=== PATIENT | female | born 1975 | race Caucasian/White ===

== ENCOUNTER → 2022-02-17 | Outpatient (CLI) | payer BC ==
[2022-02-17 13:39] LABS: Basophils # (A) 0.03 X 10*3/uL (0.00-0.10); Basophils % (A) 0.6 %; Eosinophils % (A) 2.1 %; HGB 11.6 g/dL (12.0-15.0); Immature Grans, Automated 0 %; Lymphocytes % (A) 21.2 %; MCH 25.7 pg (27.0-32.0); MCV 88.5 fL (80.0-97.0); Mean Platelet Volume 11.8 fL (9.5-12.2); Monocytes # (A) 0.29 X 10*3/uL (0.20-1.00); Monocytes % (A) 6.2 %; NRBC Per 100 WBC 0 /100 WBCS (0.0-0.0); Neutrophils # (A) 3.29 X 10*3/uL (1.80-7.70); Neutrophils % (A) 69.9 %; Platelet Count 228 X 10*3/uL (140-440); RBC 4.52 X 10*6/uL (4.10-5.20); RDW 14.6 % (11.5-14.5); WBC 4.71 X 10*3/uL (4.50-10.00)
[2022-02-17 14:34] LABS: Thyroid Peroxidase Antibodies <9.0 U/mL (0.0-33.0)
[2022-02-17 14:39] LABS: Chol/HDL Ratio 2.33 Ratio
[2022-02-17 14:42] LABS: Erythrocyte Sedimentation Rate 1 mm/Hr (0-20)
[2022-02-17 14:45] LABS: % Iron Saturation 11.76 (12.00-45.00); ALT 21 U/L (8-44); AST 25 U/L (13-35); African American GFR (CKD) 118.7 (60.0-200.0); Albumin 4.2 g/dL (3.8-4.9); Albumin/Globulin Ratio 1.83 (1.60-3.17); Alkaline Phosphatase 54 U/L (41-126); BUN/Creat Ratio 17.14 Ratio (12.00-20.00); C Reactive Protein <0.30 mg/dL (0.00-0.80); Carbon Dioxide 25.9 mmol/L (20.0-27.5); Chloride 104 mmol/L (96-109); Ferritin 9.4 ng/mL (10.0-291.0); Globulin 2.3 g/dL (1.6-3.3); Glucose 88 mg/dL (70-110); Iron 53 ug/dL (50-170); Non-African American GFR(CKD) 102.5 (60.0-200.0); Potassium 3.7 mmol/L (3.5-5.5); Sodium 140 mmol/L (135-145); Total Iron Binding Capacity 451 ug/dL (228-460); Total Protein 6.5 g/dL (6.2-8.2)
[2022-02-17 16:00] LABS: Follicle Stimulating Hormone 11.6 mIU/mL; Luteinizing Hormone 12.1 mIU/mL
[2022-02-17 16:06] LABS: Cyclic Citrull Pep IgG Unit <0.5 U/mL; Cyclic Citrullinated Pep IgG NEGATIVE (NEGATIVE)
== END | disposition home or self-care (01) ==
LOC: LABWHC1 07:32
PROVIDERS: ATTEND Family Medicine
DX: Z13.220 Encounter for screening for lipoid disorders (principal); R53.83 Other fatigue; E72.12 Methylenetetrahydrofolate reductase deficiency; E04.9 Nontoxic goiter, unspecified; N95.9 Unspecified menopausal and perimenopausal disorder
CPT/HCPCS: 36415; 80053; 80061; 82306; 82525; 82607; 82627; 82670; 82728; 82746; 83001; 83002; 83036; 83090; 83540; 83550; 83735; 84144; 84207; 84270; 84402; 84403; 84439; 84443; 84481; 84630; 85025; 85652; 86038; 86140; 86200; 86376; 86618; 86800

== ENCOUNTER → 2022-02-25 | Outpatient (CLI) | payer BC ==
--- NOTE | 2022-02-26 09:20 | MM ---
Reason for Exam: Screening (asymptomatic). Last mammogram was performed 1 year(s) and 3 month(s) ago. Patient History: Menarche at age 10. First Full-Term at age 17. Hysterectomy at age 34. Risk Values: Mame 5 year model risk: 0.7%. NCI Lifetime model risk: 6.7%. Prior Study Comparison: 10/24/2019 Bilateral MG 3D screening mammo w/cad, Unknown. 11/22/2020 Bilateral MG 3D screening mammo w/cad, Unknown. Tissue Density: The breast tissue is extremely dense which could obscure a lesion on mammography. Findings: Analyzed By CAD. There is no suspicious group of microcalcifications or new suspicious mass in either breast. Overall Assessment: Negative, BI-RAD 1 Management: Screening Mammogram of both breasts in 1 year. Some advise annual bilateral breast ultrasound surveillance in patients with background extremely dense tissue. Electronically signed and approved by: Javier Nunez M.D.
== END | disposition home or self-care (01) ==
LOC: RADMAMWWP 08:35
PROVIDERS: ATTEND Family Medicine
DX: Z12.31 Encounter for screening mammogram for malignant neoplasm of breast (principal)
CPT/HCPCS: 77063; 77067

== ENCOUNTER → 2022-03-08 | Outpatient (CLI) | payer BC ==
--- NOTE | 2022-03-08 08:30 | MR ---
PRE AND POSTCONTRAST ENHANCED MRI OF THE BRAIN: CLINICAL HISTORY: R27.9 UNSPECIFIED LACK OF COORDINATION CONTRAST: Gadavist 7ml Multiplanar and multispin-echo imaging of the brain was performed both before and after the administr ation of contrast. The ventricles, basal cisterns and sulci overlying the cerebral convexities are within normal limits. There is no evidence for midline shift or mass effect. Acute intracranial hemorrhage or extra-axial collection is not evident. There are no abnormal areas of increased or decreased signal intensity within the brain parenchyma. Following contrast administration, there is no evidence for pathologic enhancement or enhancing mass. The paranasal sinuses and mastoid air cells are well-aerated. IMPRESSION: Unremarkable pre and postcontrast enhanced MRI of the brain.
== END | disposition home or self-care (01) ==
LOC: RADMRIMAIN 07:44
PROVIDERS: ATTEND Family Medicine
DX: R27.9 Unspecified lack of coordination (principal)
CPT/HCPCS: 70553; A9585

== ENCOUNTER → 2022-06-10 | Outpatient (CLI) | payer BC ==
[2022-06-10 14:23] LABS: Basophils # (A) 0.03 X 10*3/uL (0.00-0.10); Basophils % (A) 0.7 %; Eosinophils % (A) 2.3 %; HCT 40.9 % (37.2-46.3); HGB 12.8 g/dL (12.0-15.0); Immature Grans, Automated 0 %; Lymphocytes # (A) 1.14 X 10*3/uL (0.90-5.00); Lymphocytes % (A) 26.4 %; MCH 28.3 pg (27.0-32.0); MCHC 31.3 g/dL (32.0-37.0); MCV 90.5 fL (80.0-97.0); Mean Platelet Volume 11.8 fL (9.5-12.2); Monocytes # (A) 0.28 X 10*3/uL (0.20-1.00); Monocytes % (A) 6.5 %; NRBC Per 100 WBC 0 /100 WBCS (0.0-0.0); Neutrophils # (A) 2.77 X 10*3/uL (1.80-7.70); Neutrophils % (A) 64.1 %; Platelet Count 219 X 10*3/uL (140-440); RBC 4.52 X 10*6/uL (4.10-5.20); RDW 14.6 % (11.5-14.5); WBC 4.32 X 10*3/uL (4.50-10.00)
[2022-06-10 16:06] LABS: % Iron Saturation 28.53 (12.00-45.00)
== END | disposition home or self-care (01) ==
LOC: LABWHC1 08:24
PROVIDERS: ATTEND Physician Assistant Medical
DX: R79.0 Abnormal level of blood mineral (principal)
CPT/HCPCS: 36415; 83540; 83550; 85025

== ENCOUNTER 2022-11-27 13:33 | Observation (INO) | payer BC ==
[2022-11-27] MEDS ORDERED: SODIUM CHLORIDE 0.9% 500 ML 500 ML IV STA (14:06)
--- NOTE | 2022-11-27 14:06 | ED ---
Abdominal Pain HPI - General Chief Complaint: Abdominal Pain Stated Complaint: Rectal Bleeding Source: patient Mode of arrival: ambulatory Limitations: no limitations - History of Present Illness Initial Comments: Or D6-year-old female presents to the emergency department reporting rectal bleeding. States that for the past 2 days she has had profuse bright red blood per rectum. States that it is significant and "streaming" right out of her. She denies history of similar but does admit to a history of anal fissure and external hemorrhoids. She has never had a colonoscopy. She denies any rectal pain. No abdominal pain. She is not on any blood thinners. She denies di arrhea, constipation, black stools. No Pepto or urine use. She admits nausea without vomiting. No fevers. No hematuria, dysuria or difficulty voiding. No other alleviating, Perceptin or modifying factors - Related Data Home Medications Medication Instructions Recorded Confirmed Dextroamphetamine/Amphetamine 15 mg PO DAILY 11/27/22 11/27/22 [Adderall Xr 15 mg Capsule] Dextroamphetamine/Amphetamine 10 mg PO DAILY@1200 11/27/22 11/27/22 [Adderall] QUEtiapine [SEROquel] 100 mg PO HS 11/27/22 11/27/22 Vilazodone HCl [Viibryd] 20 mg PO DAILY 11/27/22 11/27/22 Vsl #3 1 cap PO DAILY 11/27/22 11/27/22 Allergies Allergy/AdvReac Type Severity Reaction Status Date / Time morphine Allergy Facial Verified 11/27/22 14:24 Swelling silver Allergy Unknown Verified 11/27/22 14:24 sulfamethoxazole Allergy Rash/Hives Verified 11/27/22 14:24 [From Bactrim] trimethoprim [From Bactrim] Allergy Rash/Hives Verified 11/27/22 14:24 Review of Systems ROS Statement: Those systems with pertinent positive or pertinent negative responses have been documented in the HPI. ROS Other: All systems not noted in ROS Statement are negative. Past Medical History Past Medical History: No Reported History History of Any Multi-Drug Resistant Organisms: None Reported Past Surgical History: Hysterectomy Additional Past Surgical History / Comment(s): gastric, Past Psychological History: Anxiety, Depression Smoking Status: Never smoker Past Alcohol Use History: None Reported Past Drug Use History: None Reported General Exam Limitations: no limitations Course Vital Signs 11/27/22 13:39 Temperature 97.2 F L Pulse Rate 74 Respiratory 16 Rate Blood Pressure 160/102 O2 Sat by Pulse 100 Oximetry Medical Decision Making - Medical Decision Making Was pt. sent in by a medical professional or institution (HARVEY Rapp, [employer], urgent care, hospital, or penitentiary...) When possible be specific @ -[No] Did you speak to anyone other than the patient for history (EMS, parent, family, police, friend...)? What history was obtained from this source @ -[No] Did you review nursing and triage notes (agree or disagree)? Why? @ -[I reviewed and agree with nursing and triage notes] Were old charts reviewed (outside hosp., previous admission, EMS record, old EKG, old radiological studies, urgent care reports/EKG's, penitentiary records)? Report findings @ -[No old charts were reviewed] Differential Diagnosis (chest pain, altered mental status, abdominal pain women, abdominal pain men, vaginal bleeding, weakness, fever, dyspnea, syncope, headache, dizziness, GI bleed, back pain, seizure, CVA, palpatations, mental health, musculoskeletal)? @ -[not applicable] EKG interpreted by me (3pts min.). @ -[As above] X-rays interpreted by me (1pt min.). @ -[None done] CT interpreted by me (1pt min.). @ -[None done] U/S interpreted by me (1pt. min.). @ -[None done] What testing was considered but not performed or refused? (CT, X-rays, U/S, labs)? Why? @ -[None] What meds were considered but not given or refused? Why? @ -[None] Did you discuss the management of the patient with other professionals (professionals i.e. HARVEY Rapp, [employer], lab, RT, psych nurse, psychosocial rehabilitation counselor, automated manufacturing instructor, teacher, chief resource officer, behavioral health case manager)? Give summary @ -[No] Was smoking cessation discussed for >3mins.? @ -[No] Was critical care preformed (if so, how long)? @ -[No] Were there social determinants of health that impacted care today? How? (Homele ssness, low income, unemployed, alcoholism, drug addiction, transportation, low edu. Level, literacy, decrease access to med. care, detention, rehab)? @ -[No] Was there de-escalation of care discussed even if they declined (Discuss DNR or withdrawal of care, Hospice)? DNR status @ -[No] What co-morbidities impacted this encounter? (DM, HTN, Smoking, COPD, CAD, Cancer, CVA, ARF, Chemo, Hep., AIDS, mental health diagnosis, sleep apnea, morbid obesity)? @ -[None] Was patient admitted / discharged? Hospital course, mention meds given and route, prescriptions, significant lab abnormalities, going to OR and other pertinent info. @ -On arrival patient is placed into room 22. A thorough history and physical exam was performed. Rectal exam is performed and I do obtain a occult. I do not appreciate any bright red blood. There is some dried blood. Laboratory studies are conducted. Hemoglobin 13.5. Occult is positive. CT is performed which demonstrates posterior wall of the rectum and some prominent vasculature. Could reflect the site of possible hemorrhage. They recommend direct visualization. Discussed overnight observation with GI consultation with the patient's in the patient was agreeable. Dr. Cortez has been paged and we are still awaiting her call back. Patient will be made nothing by mouth at midnight for possible colonoscopy Undiagnosed new problem with uncertain prognosis? @ -[No] Drug Therapy requiring intensive monitoring for toxicity (Heparin, Nitro, Insulin, Cardizem)? @ -[No] Were any procedures done? @ -[No] Diagnosis/symptom? @ -[default] Acute, or Chronic, or Acute on Chronic? @ -[default] Uncomplicated (without systemic symptoms) or Complicated (systemic symptoms)? @ -[default] Side effects of treatment? @ -[No] Exacerbation, Progression, or Severe Exacerbation? @ -[No] Poses a threat to life or bodily function? How? (Chest pain, USA, AR, pneumonia, PE, COPD, DKA, ARF, appy, cholecystitis, CVA, Diverticulitis, Homicidal, Suicidal, threat to staff... and all critical care pts) @ -[No] - Lab Data Result diagrams: 11/27/22 14:12 11/27/22 14:11 Lab Results 11/27/22 11/27/22 11/27/22 Range/Units 14:11 14:11 14:11 WBC (3.8-10.6) k/uL RBC (3.80-5.40) m/uL Hgb (11.4-16.0) gm/dL Hct (34.0-46.0) % MCV (80.0-100.0) fL MCH (25.0-35.0) pg MCHC (31.0-37.0) g/dL RDW (11.5-15.5) % Plt Count (150-450) k/uL MPV Neutrophils % % Lymphocytes % % Monocytes % % Eosinophils % % Basophils % % Neutrophils # (1.3-7.7) k/uL Lymphocytes # (1.0-4.8) k/uL Monocytes # (0-1.0) k/uL Eosinophils # (0-0.7) k/uL Basophils # (0-0.2) k/uL PT 10.2 (9.0-12.0) sec INR 1.0 (<1.2) APTT 25.4 (22.0-30.0) sec Sodium 138 (137-145) mmol/L Potassium 4.2 (3.5-5.1) mmol/L Chloride 105 (98-107) mmol/L Carbon Dioxide 27 (22-30) mmol/L Anion Gap 6 mmol/L BUN 15 (7-17) mg/dL Creatinine 0.73 (0.52-1.04) mg/dL Est GFR (CKD-EPI)AfAm >90 (>60 ml/min/1.73 sqM) Est GFR (CKD-EPI)NonAf >90 (>60 ml/min/1.73 sqM) Glucose 96 (74-99) mg/dL Plasma Lactic Acid Francisco (0.7-2.0) mmol/L Calcium 9.1 (8.4-10.2) mg/dL Total Bilirubin 0.6 (0.2-1.3) mg/dL AST 24 (14-36) U/L ALT 18 (4-34) U/L Alkaline Phosphatase 67 (38-126) U/L Troponin I <0.012 (0.000-0.034) ng/mL Total Protein 7.0 (6.3-8.2) g/dL Albumin 4.3 (3.5-5.0) g/dL Stool Occult Blood (Negative) 11/27/22 11/27/22 11/27/22 Range/Units 14:11 14:12 14:25 WBC 6.4 (3.8-10.6) k/uL RBC 4.62 (3.80-5.40) m/uL Hgb 13.5 (11.4-16.0) gm/dL Hct 40.1 (34.0-46.0) % MCV 86.8 (80.0-100.0) fL MCH 29.3 (25.0-35.0) pg MCHC 33.8 (31.0-37.0) g/dL RDW 13.9 (11.5-15.5) % Plt Count 197 (150-450) k/uL MPV 9.4 Neutrophils % 77 % Lymphocytes % 16 % Monocytes % 4 % Eosinophils % 1 % Basophils % 0 % Neutrophils # 4.9 (1.3-7.7) k/uL Lymphocytes # 1.0 (1.0-4.8) k/uL Monocytes # 0.2 (0-1.0) k/uL Eosinophils # 0.1 (0-0.7) k/uL Basophils # 0.0 (0-0.2) k/uL PT (9.0-12.0) sec INR (<1.2) APTT (22.0-30.0) sec Sodium (137-145) mmol/L Potassium (3.5-5.1) mmol/L Chloride (98-107) mmol/L Carbon Dioxide (22-30) mmol/L Anion Gap mmol/L BUN (7-17) mg/dL Creatinine (0.52-1.04) mg/dL Est GFR (CKD-EPI)AfAm (>60 ml/min/1.73 sqM) Est GFR (CKD-EPI)NonAf (>60 ml/min/1.73 sqM) Glucose (74-99) mg/dL Plasma Lactic Acid Francisco 0.7 (0.7-2.0) mmol/L Calcium (8.4-10.2) mg/dL Total Bilirubin (0.2-1.3) mg/dL AST (14-36) U/L ALT (4-34) U/L Alkaline Phosphatase (38-126) U/L Troponin I (0.000-0.034) ng/mL Total Protein (6.3-8.2) g/dL Albumin (3.5-5.0) g/dL Stool Occult Blood Positive H (Negative) Disposition Clinical Impression: Rectal bleeding Disposition: ADMITTED IP TO THIS [facility] Condition: Stable Is patient prescribed a controlled substance at d/c from ED?: No Time of Disposition: 17:21 Decision to Admit Reason: Admit from EC Decision Date: 11/27/22 Decision Time: 17:21
[2022-11-27 14:36] LABS: Basophils % (A) 0 %; Eosinophils # (A) 0.1 k/uL (0-0.7); Eosinophils % (A) 1 %; HCT 40.1 % (34.0-46.0); HGB 13.5 gm/dL (11.4-16.0); Lymphocytes % (A) 16 %; MCH 29.3 pg (25.0-35.0); MCHC 33.8 g/dL (31.0-37.0); MCV 86.8 fL (80.0-100.0); Mean Platelet Volume 9.4; Monocytes # (A) 0.2 k/uL (0-1.0); Monocytes % (A) 4 %; Neutrophils # (A) 4.9 k/uL (1.3-7.7); Neutrophils % (A) 77 %; Platelet Count 197 k/uL (150-450); RBC 4.62 m/uL (3.80-5.40); RDW 13.9 % (11.5-15.5); WBC 6.4 k/uL (3.8-10.6)
[2022-11-27 14:57] LABS: Partial Thromboplastin Time 25.4 sec (22.0-30.0); Prothrombin Time 10.2 sec (9.0-12.0)
[2022-11-27 15:05] LABS: ALT 18 U/L (4-34); AST 24 U/L (14-36); African American GFR (CKD) >90 (>60 ml/min/1.73 sqM); Albumin 4.3 g/dL (3.5-5.0); Alkaline Phosphatase 67 U/L (38-126); Anion Gap 6 mmol/L; Blood Urea Nitrogen 15 mg/dL (7-17); Calcium 9.1 mg/dL (8.4-10.2); Carbon Dioxide 27 mmol/L (22-30); Chloride 105 mmol/L (98-107); Glucose 96 mg/dL (74-99); Non-African American GFR(CKD) >90 (>60 ml/min/1.73 sqM); Potassium 4.2 mmol/L (3.5-5.1); Sodium 138 mmol/L (137-145); Total Bilirubin 0.6 mg/dL (0.2-1.3)
--- NOTE | 2022-11-27 15:10 | CT ---
EXAMINATION TYPE: CT angio abdomen pelvis DATE OF EXAM: 11/27/2022 COMPARISON: None HISTORY: rectal bleeding CT DLP: 1554.1 mGycm CONTRAST: CTA thoracic and abdominal aorta with 3-D reconstruction is performed without Oral Contrast and with IV Contrast, patient injected with 100 mL of Isovue 370. Contrast CTA of the abdominal aorta was performed from the lung bases through the base of the pelvis. 3-D reconstruction imaging obtained at a separate workstation. CONTRAST CT ABDOMEN AND PELVIS ABDOMINAL AORTA: No evidence for abdominal aortic aneurysm. No dissection. Iliac vessels are symmet jakub and patent. LIVER/GB- No significant abnormality is seen. PANCREAS- No significant abnormality is seen. SPLEEN- No significant abnormality is seen. ADRENALS- No significant abnormality is seen. KIDNEYS/BLADDER- No significant abnormality is seen. BOWEL-at the level of the posterior wall of the rectum there is prominent vasculature noted seen best on sagittal image 25 sequence 505 and corresponding axial images 179 sequence 501 through image 186. This could reflect the site of possible hemorrhage. There is contrast blushing noted within the rect um as well which may reflect active hemorrhage. Correlate clinically. The remainder of the colon appe ars unremarkable. GENITAL ORGANS: No gross abnormality seen. LYMPH NODES- No greater than 1cm abdominal or pelvic lymph nodes are appreciated. OSSEOUS STRUCTURES- No significant abnormality is seen. OTHER- No significant abnormality is seen. IMPRESSION- at the level of the posterior wall of the rectum there is prominent vasculature noted seen best on sa gittal image 25 sequence 505 and corresponding axial images 179 sequence 501 through image 186. This could reflect the site of possible hemorrhage. There is contrast blushing noted within the rectum as well which may reflect active hemorrhage. Correlate clinically. Recommend direct visualization.
[2022-11-27] MEDS ORDERED: NALOXONE 0.4 MG/ML 1 ML VIAL IV PRN (17:21)
[2022-11-27] MEDS ORDERED: QUEtiapine 100 MG TAB PO SCH (21:00)
--- NOTE | 2022-11-28 02:48 | P.HPIM ---
History of Present Illness H&P Date: 11/27/22 Chief Complaint: rectal bleeding 46 year old female no significant past medical history she is coming in due to rectal bleeding. which has been on going for the past 2 days , she describes bright red blood per rectum in large amounts , no abd pain , no nausea or vomiting, she is not on blood thinners or aspirin , denies NSAIDs. she does have history of hemorrhoids and fissures. and long history of constipation , she is 46 and never had a colonoscopy , no family history of colon cancer Review of Systems Pertinent positives as noted in HPI. All other systems were reviewed and are negative Past Medical History Past Medical History: No Reported History Additional Past Medical History / Comment(s): treatment resistive depression and anxiety, states has been hospitalized 4 times over the last 10 years for it History of Any Multi-Drug Resistant Organisms: None Reported Past Surgical History: Hysterectomy Additional Past Surgical History / Comment(s): gastric, Past Psychological History: Anxiety, Depression Smoking Status: Never smoker Past Alcohol Use History: None Reported Past Drug Use History: None Reported Medications and Allergies Home Medications Medication Instructions Recorded Confirmed Type Dextroamphetamine/Amphetamine 15 mg PO DAILY 11/27/22 11/27/22 History [Adderall Xr 15 mg Capsule] Dextroamphetamine/Amphetamine 10 mg PO DAILY@1200 11/27/22 11/27/22 History [Adderall] QUEtiapine [SEROquel] 100 mg PO HS 11/27/22 11/27/22 History Vilazodone HCl [Viibryd] 20 mg PO DAILY 11/27/22 11/27/22 History Vsl #3 1 cap PO DAILY 11/27/22 11/27/22 History Allergies Allergy/AdvReac Type Severity Reaction Status Date / Time morphine Allergy Facial Verified 11/27/22 14:24 Swelling silver Allergy Unknown Verified 11/27/22 14:24 sulfamethoxazole Allergy Rash/Hives Verified 11/27/22 14:24 [From Bactrim] trimethoprim [From Bactrim] Allergy Rash/Hives Verified 11/27/22 14:24 Physical Exam Vitals: Vital Signs Temp Pulse Pulse Resp BP BP Pulse Ox 11/27/22 19:51 98.2 F 75 162/88 100 11/27/22 19:00 98.4 F 77 14 155/86 100 11/27/22 18:00 88 18 145/90 97 11/27/22 13:39 97.2 F L 74 16 160/102 100 Intake and Output 11/27/22 11/27/22 11/27/22 06:59 14:59 22:59 Other: Weight 70.307 kg 70.307 kg Constitutional: No acute distress, conversant, pleasant Eyes: Anicteric sclerae, moist conjunctiva, Pupils equal round reactive to light ENMT: NC/AT Oropharynx clear, no erythema, or exudates Neck: Supple, no masses, or JVD No carotid bruits No thyromegaly Lungs: Clear to auscultation Clear to percussion Normal respiratory effort, no accessory muscle use Cardiovascular: Heart regular in rate and rhythm, No murmurs, gallops, or rubs No peripheral edema Abdominal: Soft Nontender, no guarding, rebound or rigidity Abdomen moving with respiration Normoactive bowel sounds No hepatomegaly, No splenomegaly No palpable mass No abdominal wall hernia noted Skin: Normal temperature, tone, texture, turgor No induration No subcutaneous nodules No rash, lesions No ulcers Extremities: No digital cyanosis No clubbing Pedal pulses intact and symmetrical Radial pulses intact and symmetrical No calf tenderness Psychiatric: Alert and oriented to person, place and time Appropriate affect fair judgement Neuro Muscles Strength 5/5 in all 4 extremities Sensation to light touch grossly present throughout Cranial nerves II-XII grossly intact Lymphatics: no palpable cervical or supraclavicular lymph nodes Results CBC & Chem 7: 11/27/22 14:12 11/27/22 14:11 Labs: Abnormal Lab Results - Last 24 Hours (Table) 11/27/22 Range/Units 14:11 Stool Occult Blood Positive H (Negative) Thrombosis Risk Factor Assmnt - Choose All That Apply Each Factor Represents 1 point: Age 41-60 years Other Risk Factors: No Thrombosis Risk Factor Assessment Total Risk Factor Score: 1 Thrombosis Risk Factor Assessment Level: Low Risk Assessment and Plan Assessment: 46 year old female with no past medical history , coming in for rectal bleeding , I discussed the case with ED doc, patient is scared and reporting 2 days of ongoing bleeding , I accepted the admission to monitor her hemoglobin and Gen surgery eval with anticipated length of stay < 2 midnights bright red blood per rectum , suspected due to hemorrhoid , rule out other sources of lower GI bleed monitor vital signs monitor hemoglobin 1 hrs GI consult IVF hydration with normal saline 100 cc per hour hemoglobin stable at 13.5 , PT/INR 10.2/1. platelet 197 unremarkable full code DVT PPX SCDs
[2022-11-28] MEDS: SODIUM CHLORIDE 0.9% 1,000 ML IV SCH ×2 (04:42→14:53)
[2022-11-28] MEDS ORDERED: PEG 3350 (236 GM/BTL) + LYTES 4,000 ML BOTTLE PO ONE (07:00)
[2022-11-28 08:46] LABS: Basophils # (A) 0.05 X 10*3/uL (0.00-0.10); Basophils % (A) 1.2 %; Eosinophils # (A) 0.13 X 10*3/uL (0.04-0.35); HCT 37.6 % (37.2-46.3); HGB 11.8 g/dL (12.0-15.0); Immature Grans, Automated 0 %; Lymphocytes # (A) 1.44 X 10*3/uL (0.90-5.00); Lymphocytes % (A) 33.6 %; MCH 28.6 pg (27.0-32.0); MCHC 31.4 g/dL (32.0-37.0); MCV 91.3 fL (80.0-97.0); Mean Platelet Volume 11.5 fL (9.5-12.2); Monocytes # (A) 0.38 X 10*3/uL (0.20-1.00); Monocytes % (A) 8.9 %; NRBC Per 100 WBC 0 /100 WBCS (0.0-0.0); Neutrophils # (A) 2.29 X 10*3/uL (1.80-7.70); Neutrophils % (A) 53.3 %; Platelet Count 198 X 10*3/uL (140-440); RBC 4.12 X 10*6/uL (4.10-5.20); RDW 13.6 % (11.5-14.5); WBC 4.29 X 10*3/uL (4.50-10.00)
[2022-11-28 08:55] LABS: African American GFR (CKD) 95.8 (60.0-200.0); Anion Gap 7.9 mmol/L (10.00-18.00); BUN/Creat Ratio 15.55 Ratio (12.00-20.00); Calcium 9.2 mg/dL (8.7-10.3); Carbon Dioxide 27.9 mmol/L (20.0-27.5); Non-African American GFR(CKD) 82.7 (60.0-200.0); Potassium 4.1 mmol/L (3.5-5.5)
[2022-11-28] MEDS ORDERED: PATIENT'S OWN (Dextroamphetamine/Amphetamine [Adderall Xr 15 Mg Capsule] 15 MG Cap.Er PO SCH (09:00)
[2022-11-28] MEDS ORDERED: VILAZODONE HCL 20 MG PO SCH (09:00)
--- NOTE | 2022-11-28 09:19 | P.CONS ---
History of Present Illness - Reason for Consult Consult date: 11/28/22 Lower GI bleed Requesting physician: Kitty Ferrell - Chief Complaint Rectal bleeding - History of Present Illness This is a pleasant 46-year-old female with no significant past medical history however does have a history of hemorrhoids and rectal fistula who presented to the emergency department with 2 days of bright red rectal bleeding. Patient states for the last 2 days duration she's had bright red blood per rectum occurs with and without bowel movements. States she is getting some rectal pain does have a history of hemorrhoids and fissures. States that the blood will start pouring out of her when she tries to have a bowel movement, she does have a history of constipation with straining. She has had no previous colonoscopy. She had a CT angiogram of the abdomen and pelvis that reported at the level of the posterior wall of the rectum there is prominent vasculature noted. This could reflect the site of possible hemorrhage. There is contrast blushing noted within the rectum as well which may reflect active hemorrhage. Correlate clinically. Recommend direct visualization. She states she has no abdominal pain, nausea or vomiting. She's been afebrile. States she has had previous rectal bleeding with bowel movements and pressure but not to this extent. States that it was pooling out when she was sitting on the toilet. Denies any anticoagulation or regular NSAID use. No shortness of breath or chest pain. Today's repeat labs WBC 4.2 hemoglobin 11.8 platelet count 198,000 Admitting labs WBC 6.4 hemoglobin 13.5 hematocrit 40 platelet count 197,000 INR 1.0 sodium 138 potassium 4.2 BUN 15 creatinine 0.7 total bilirubin 0.6 AST 24 ALT 18 alkaline phosphatase 67 stool occult blood positive Review of Systems REVIEW OF SYSTEMS: CARDIOPULMONARY: No chest pain or shortness of breath. Gastrointestinal: No abdominal pain. No nausea or vomiting. No hematemesis, coffee-ground emesis. Rectal bleeding, rectal pain. Reports previous hemorrhoids. GENITOURINARY: No dysuria or hematuria. MUSCULOSKELETAL: Reports normal range of motion., Joint pain. SKIN: No rashes. No jaundice. ENDOCRINE: No chills, fevers. No excessive weight gain or loss. No polydipsia or polyuria. PSYCHIATRIC: Unremarkable. NEUROLOGY: No change in mental status. Denies dizziness, headache. ENT: Vision unremarkable. CONSTITUTIONAL: No recent weight loss. No fever, chills, night sweats. Past Medical History Past Medical History: No Reported History Additional Past Medical History / Comment(s): treatment resistive depression and anxiety, states has been hospitalized 4 times over the last 10 years for it History of Any Multi-Drug Resistant Organisms: None Reported Past Surgical History: Hysterectomy Additional Past Surgical History / Comment(s): gastric, Past Psychological History: Anxiety, Depression Smoking Status: Never smoker Past Alcohol Use History: None Reported Past Drug Use History: None Reported Medications and Allergies Home Medications Medication Instructions Recorded Confirmed Type Dextroamphetamine/Amphetamine 15 mg PO DAILY 11/27/22 11/27/22 History [Adderall Xr 15 mg Capsule] Dextroamphetamine/Amphetamine 10 mg PO DAILY@1200 11/27/22 11/27/22 History [Adderall] QUEtiapine [SEROquel] 100 mg PO HS 11/27/22 11/27/22 History Vilazodone HCl [Viibryd] 20 mg PO DAILY 11/27/22 11/27/22 History Vsl #3 1 cap PO DAILY 11/27/22 11/27/22 History Allergies Allergy/AdvReac Type Severity Reaction Status Date / Time morphine Allergy Facial Verified 11/27/22 14:24 Swelling silver Allergy Unknown Verified 11/27/22 14:24 sulfamethoxazole Allergy Rash/Hives Verified 11/27/22 14:24 [From Bactrim] trimethoprim [From Bactrim] Allergy Rash/Hives Verified 11/27/22 14:24 Physical Exam Vitals: Vital Signs Temp Pulse Pulse Resp BP BP Pulse Ox 11/28/22 04:29 97.8 F 75 16 97/60 98 11/27/22 19:51 98.2 F 75 162/88 100 11/27/22 19:00 98.4 F 77 14 155/86 100 11/27/22 18:00 88 18 145/90 97 11/27/22 13:39 97.2 F L 74 16 160/102 100 Intake and Output 11/27/22 11/27/22 11/28/22 14:59 22:59 06:59 Other: Voiding Method Toilet # Voids 1 # Bowel Movements 2 Weight 70.307 kg 70.307 kg General appearance: The patient is alert, oriented, appears in no acute distress. HET: Head is normocephalic and atraumatic. Conjunctiva pink. Sclera anicteric. Neck: Supple without lymphadenopathy. Trachea midline. Heart: S1 S2. Regular rate and rhythm. Lungs: Clear to auscultation. Abdomen: Soft, nontender, nondistended with bowel sounds. No guarding or rigidity. Skin: No rashes. No jaundice. Extremities: Normal skin color and turgor. No pedal edema. Neurological: No focal deficits. Alert and oriented x3. Results CBC & Chem 7: 11/28/22 04:54 11/28/22 04:54 Labs: Abnormal Lab Results - Last 24 Hours (Table) 11/27/22 Range/Units 14:11 Stool Occult Blood Positive H (Negative) Assessment and Plan (1) Rectal bleeding Narrative/Plan: 46-year-old female with a history of constipation, straining, hemorrhoids and rectal fissure with previous rectal bleeding who had been recommended for outpatient colonoscopy however had not followed through. Patient coming in with 2 days of significant rectal bleeding. CT angiogram abdomen and pelvis shows prominent vasculature in the posterior wall of the rectum as well as contrast blushing noted within the rectum which may be reflective of active hemorrhage. Unclear etiology, although proceed with bowel prep this morning and colonoscopy later this afternoon. Current Visit: Yes Status: Acute Code(s): K62.5 - HEMORRHAGE OF ANUS AND RECTUM SNOMED Code(s): 76974745 Plan: 1. Bowel prep this morning until 11 AM 2. Keep nothing by mouth following 3. Plan for colonoscopy this afternoon 4. Further recommendations forthcoming following procedure Thank you for this consultation, we will sign off after today as there is no gastroenterology coverage. Dr. Jordan Mccarthy I agree with the dictator's note, documented as a scribe by Pattie Erazo.
[2022-11-28] MEDS ORDERED: PATIENT'S OWN (Dextroamphetamine/Amphetamine [Adderall] 10 MG Tablet) PO SCH (12:00)
[2022-11-28] MEDS ORDERED: LORazepam 2 MG/ML INJ IV PRN (15:23)
[2022-11-28] MEDS ORDERED: IV FLUID CONTINUATION 1,000 ML IV ONE ×2 (15:57)
[2022-11-28] MEDS ORDERED: PROPOFOL 10 MG/ML 20 ML VIAL IV ONE (16:00)
--- NOTE | 2022-11-28 16:25 | P.PCN ---
Date of Procedure: 11/28/22 Procedure(s) Performed: BRIEF HISTORY: Patient is a 46 [id number] pleasant white female admitted hospital with severe rectal bleeding that started 2 days ago. She is been having multiple episodes of bright red blood per rectum at least 10 times yesterday and today. Hemoglobin was 13.8 g per anesthesia. She had a CT angiogram done in the ER that showed active bleeding in the rectal area. She is scheduled for colonoscopy to evaluate further. PROCEDURE PERFORMED: Colonoscopy with snare polypectomy. PREOPERATIVE DIAGNOSIS: Severe rectal bleeding of 2 days' duration. IV sedation per Anesthesia. PROCEDURE: After informed consent was obtained, the patient, was brought into the endoscopy unit. IV sedation was administered by Anesthesia under continuous monitoring. Digital rectal examination was normal. Initially the Olympus CF-160 flexible video colonoscope was then inserted in the rectum, gradually advanced into the cecum with moderate to severe difficulty. Careful examination was performed as the scope was gradually being withdrawn. Ileocecal valve and the appendiceal orifice were visualized and appeared normal. Prep was excellent. No active bleeding identified. Mucosa of the cecum, a 5 mm sessile polyp removed by snare polypectomy. Mucosa of the ascending colon, transverse colon, descending colon, sigmoid colon, and rectum appeared normal. The distal sigmoid colon there was another 5 mm polyp removed by snare polypectomy. Retroflexion was performed in the rectum and grade 2 internal hemorrhoids were seen. The patient tolerated the procedure well. IMPRESSION: 5 mm a cecal polyp status post polypectomy 5 mm sigmoid colon polyp status post polypectomy Grade 2 internal hemorrhoids No active bleeding noted RECOMMENDATIONS: Findings of this examination were discussed with the patient . Most likely the base of the patient had bleeding from internal hemorrhoids that has spontaneously resolved. Diet will be advanced as tolerated. Follow with the biopsy results. He can be discharged home today. Outpatient follow-up in 3-4 weeks.
[2022-11-28 16:53] VITALS: RESP 16; TEMP 97.8
--- NOTE | 2022-11-28 17:40 | P.DS ---
Providers Date of admission: 11/27/22 17:21 Expected date of discharge: 11/28/22 Attending physician: Hong Solares MD Consults: 11/27/22 17:32 Consult Physician Urgent Consulting Provider: Helena Mccarthy Consult Reason/Comments: lower gi bleed Do you want consulting provider notified?: Yes Primary care physician: Stiven Jennings Hospital Course: Discharge Diagnosis: Lower GI bleed, hematochezia. Resolved Colonic polyps Internal hemorrhoids Hospital Course: Patient is a very pleasant 46-year-old female with a past medical history of anxiety and depression presented to the hospital on 11/27/22 secondary to bright red blood per rectum. Patient reported this was painless bleeding from her rectum and patient was noted in the ER to have large amounts of bright red blood per rectum. Patient was otherwise asymptomatic denying any abdominal pain, cramping, nausea, vomiting, rectal pain, or any other complaints. Patient did report her sister was recently diagnosed with colon cancer at the age of 50. Patient underwent full evaluation in the emergency department. CBC revealing hemoglobin stable at 13.5 and CMP was unremarkable. Stool occult positive for blood. Patient was admitted under our services to observation unit with consultation to ukrainian folk arts instructor. Repeat morning labs completed did show a decrease in hemoglobin from 13.5 down to 11.8. Patient tolerated bowel prep and had full resolution of rectal bleeding. She underwent a colonoscopy with snare polypectomy with Dr. Mccarthy secondary to reports of severe rectal bleeding 2 days. Patient underwent procedure and tolerated well. Arborist reports patient had a 5 mm cecal polyp and a 5 mm sigmoid colon polyp that were removed via polypectomy and patient was found to have grade 2 internal hemorrhoids with no active bleeding. Arborist reports these findings were discussed with patient and rectal bleeding likely secondary to bleeding from hemorrhoids and have spontaneously resolved, Dr. Mccarthy recommending outpatient follow-up in her office in 3-4 weeks. Medically, patient is stable at this time and stable for discharge home. Physical exam: Patient seen and examined at bedside. Vital signs reviewed and stable. General: Nontoxic, no distress and appears stated age. Derm: Skin warm and dry, normal coloration for ethnicity. Head: Atraumatic, normocephalic and symmetric. Eyes: EOMs intact, no lid lag, and anicteric sclera Mouth: no lip lesions, mucus membranes moist Cardiovascular: regular rate and rhythm with normal S1S2, no murmur, positive posterior tibial pulses bilaterally, and cap refill < 2 seconds. Lungs: Respirations even, regular, and unlabored on room air. Lungs CTA bilaterally, no rhonchi, no rales, no wheezing, and no accessory muscle usage. Abdominal: soft, nontender to palpation, no guarding, no appreciable organomegaly Ext: ROM intact. No gross muscle atrophy, no edema, no contractures Neuro: Speech clear, face symmetrical and CN II-XII grossly intact with no noted focal neuro deficits Psych: Alert and oriented to person, place, time, and situation. Appropriate and pleasant affect. A total of 31 minutes of time were spent preparing this complex discharge summary. Pt was discharged on 11/28/22 at 5:38 PM. Patient was seen independently by Nurse Practitioner. This document was prepared using [employer] dictation software. Please allow for errors in art glass designer while rare they do occur. I reviewed the documentation as provided by the SILVIO above, who is the original author of this note. I agree with the documented assessment and plan, with the following changes: none Patient Condition at Discharge: Stable Plan - Discharge Summary New Discharge Prescriptions: Continue Vsl #3 1 cap PO DAILY Dextroamphetamine/Amphetamine [Adderall Xr 15 mg Capsule] 15 mg PO DAILY Vilazodone HCl [Viibryd] 20 mg PO DAILY QUEtiapine [SEROquel] 100 mg PO HS Dextroamphetamine/Amphetamine [Adderall] 10 mg PO DAILY@1200 Discharge Medication List Dextroamphetamine/Amphetamine [Adderall Xr 15 mg Capsule] 15 mg PO DAILY 11/27/22 [History] Dextroamphetamine/Amphetamine [Adderall] 10 mg PO DAILY@1200 11/27/22 [History] QUEtiapine [SEROquel] 100 mg PO HS 11/27/22 [History] Vilazodone HCl [Viibryd] 20 mg PO DAILY 11/27/22 [History] Vsl #3 1 cap PO DAILY 11/27/22 [History] Follow up Appointment(s)/Referral(s): Stiven Jennings MD [Primary Care Provider] - 1-2 days Helena Mccarthy MD [STAFF PHYSICIAN] - 3 Weeks Activity/Diet/Wound Care/Special Instructions: Activity: As tolerated. Take breaks as needed. Diet: Heart healthy and carb consistent diet. Avoid salts, or foods with hidden salts such as canned or boxed foods and frozen dinners. Extra salt makes your heart work harder and traps the fluid in your body for longer. Special Instructions: Take all of your medications as directed and remember to keep all of your doctor's appointments and follow-up as needed. Thank you for allowing us to participate in your care, it was truly a pleasure having you for our patient!!! Discharge Disposition: HOME SELF-CARE
[2022-11-28 18:15] LABS: HCT 35.8 % (34.0-46.0); HGB 11.8 gm/dL (11.4-16.0); MCH 29.5 pg (25.0-35.0); MCHC 32.8 g/dL (31.0-37.0); MCV 89.9 fL (80.0-100.0); Mean Platelet Volume 8.5; Platelet Count 204 k/uL (150-450); RBC 3.98 m/uL (3.80-5.40); RDW 13.8 % (11.5-15.5); WBC 5.2 k/uL (3.8-10.6)
[2022-11-28 18:22] VITALS: BP 105/70; PULSE 78
== END 2022-11-28 18:28 | disposition home or self-care (01) ==
LOC: EC 13:33 → 6NMEDSUR 17:21
PROVIDERS: ADMIT Internal Medicine; ATTEND Internal Medicine
DX: K63.5 Polyp of colon (principal); K92.2 Gastrointestinal hemorrhage, unspecified; K64.8 Other hemorrhoids; Z87.19 Personal history of other diseases of the digestive system; Z90.710 Acquired absence of both cervix and uterus; F41.9 Anxiety disorder, unspecified; F32.A Depression, unspecified; Z79.899 Other long term (current) drug therapy; Z88.2 Allergy status to sulfonamides; Z88.5 Allergy status to narcotic agent; Z91.048 Other nonmedicinal substance allergy status
CPT/HCPCS: 96360; 96361; 99285; 36415; 88305; 80053; 80048; 83605; 84484; 85025 ×2; 85027; 85610; 85730; 82272; 74174; 45385; G0378 ×2; J2060; J2704; Q9967

== ENCOUNTER 2022-12-08 11:20 | Observation (INO) | payer BC ==
--- NOTE | 2022-12-08 12:33 | ED ---
General Adult HPI - General Chief complaint: GI Bleed Stated complaint: GI bleed, abn labs Time Seen by Provider: 12/08/22 11:58 Source: patient Mode of arrival: ambulatory Limitations: no limitations - History of Present Illness Initial comments: Dictation was produced using [employer] dictation software. please excuse any grammatical, word or spelling errors. Chief Complaint: 46-year-old female presents emergency department for persistent GI bleed History of Present Illness: Patient is 38-year-old female following closely with GI specialist for ongoing GI bleeding. Patient states that she has a bleeding internal hemorrhoid. She had a colonoscopy performed 10 days ago. She has been following up with Dr. Fabio ZHENG. She has been having ongoing bleeding. Was prescribed rectal suppositories for hydrocortisone. She has an appointment with GI tomorrow. Feel lightheaded. States that she thinks it's because of losing blood. Denies any fever. No chills. No abdominal pain. No rectal pain. Every time shows a bowel movement she states that there is a stream of blood going to the toilet. The ROS documented in this emergency department record has been reviewed and confirmed by me. Those systems with pertinent positive or negative responses have been documented in the HPI. All other systems are other negative and/or noncontributory. - Related Data Home Medications Medication Instructions Recorded Confirmed Dextroamphetamine/Amphetamine 15 mg PO DAILY 11/27/22 12/08/22 [Adderall Xr 15 mg Capsule] Dextroamphetamine/Amphetamine 10 mg PO DAILY@1200 11/27/22 12/08/22 [Adderall] QUEtiapine [SEROquel] 100 mg PO HS 11/27/22 12/08/22 Vilazodone HCl [Viibryd] 20 mg PO DAILY 11/27/22 12/08/22 Vsl #3 1 cap PO DAILY 11/27/22 12/08/22 Hydrocortisone Suppository 25 mg RECTAL DAILY 12/08/22 12/08/22 [Anusol-Hc] Allergies Allergy/AdvReac Type Severity Reaction Status Date / Time morphine Allergy Facial Verified 12/08/22 12:29 Swelling silver Allergy Unknown Verified 12/08/22 12:29 sulfamethoxazole Allergy Rash/Hives Verified 12/08/22 12:29 [From Bactrim] trimethoprim [From Bactrim] Allergy Rash/Hives Verified 12/08/22 12:29 Review of Systems ROS Statement: Those systems with pertinent positive or pertinent negative responses have been documented in the HPI. ROS Other: All systems not noted in ROS Statement are negative. Past Medical History Past Medical History: No Reported History Additional Past Medical History / Comment(s): treatment resistive depression and anxiety, states has been hospitalized 4 times over the last 10 years for it History of Any Multi-Drug Resistant Organisms: None Reported Past Surgical History: Hysterectomy Additional Past Surgical History / Comment(s): gastric, Past Psychological History: Anxiety, Depression Smoking Status: Never smoker Past Alcohol Use History: None Reported Past Drug Use History: None Reported General Exam - General Exam Comments Initial Comments: PHYSICAL EXAM: General Impression: Alert and oriented x3, not in acute distress HEENT: Normocephalic atraumatic, extra-ocular movements intact, pupils equal and reactive to light bilaterally, mucous membranes moist. Cardiovascular: Heart regular rate and rhythm Chest: Able to complete full sentences, no retractions, no tachypnea Abdomen: abdomen soft, non-tender, non-distended, no organomegaly Musculoskeletal: no peripheral edema Motor: no focal deficits noted Neurological: CN II-XII grossly intact, no focal motor or sensory deficits noted Skin: Intact with no visualized rashes Psych: Normal affect and mood Limitations: no limitations Course Vital Signs 12/08/22 12/08/22 12/08/22 11:23 12:31 13:00 Temperature 97.6 F Pulse Rate 88 75 Respiratory 18 16 12 Rate Blood Pressure 143/94 138/91 138/91 O2 Sat by Pulse 99 100 100 Oximetry 12/08/22 13:30 Temperature Pulse Rate 75 Respiratory 11 L Rate Blood Pressure 142/88 O2 Sat by Pulse 100 Oximetry Medical Decision Making - Medical Decision Making Was pt. sent in by a medical professional or institution (, PA, PUBLIC HEALTH TECHNICIAN, urgent care, hospital, or fpc...) When possible be specific @ -No Did you speak to anyone other than the patient for history (EMS, parent, family, police, friend...)? What history was obtained from this source @ -No Did you review nursing and triage notes (agree or disagree)? Why? @ -I reviewed and agree with nursing and triage notes Were old charts reviewed (outside hosp., previous admission, EMS record, old EKG, old radiological studies, urgent care reports/EKG's, fpc records)? Report findings @ -Prior GI notes reviewed and colonoscopy notes reviewed showing the patient had polypectomy and nonbleeding internal hemorrhoids Differential Diagnosis (chest pain, altered mental status, abdominal pain women, abdominal pain men, vaginal bleeding, musculoskeletal, weakness, fever, dyspnea, syncope, headache, dizziness, GI bleed, back pain, seizure, CVA, palpatations, mental health)? @ -Differential GI Bleed: Esophageal varices, aortoenteric fistula, Aleena-Melvin, gastritis, peptic ulcer disease, diverticulosis, inflammatory bowel disease, hemorrhoids, fissure, colitis, malignancy, Meckels diverticulum, this is not meant to be an all- inclusive list. EKG interpreted by me (3pts min.). @ -None done X-rays interpreted by me (1pt min.). @ -None done CT interpreted by me (1pt min.). @ -None done U/S interpreted by me (1pt. min.). @ -None done What testing was considered but not performed or refused? (CT, X-rays, U/S, labs)? Why? @ -None What meds were considered but not given or refused? Why? @ -None Did you discuss the management of the patient with other professionals (professionals i.e. , PA, PUBLIC HEALTH TECHNICIAN, lab, RT, psych nurse, social media content specialist, bottom presser, teacher, campus safety officer, case technician)? Give summary @ -Discussed with Dr. Mccarthy who requested that patient case be discussed with general surgery. Case discussed with Dr. Acosta request patient be admitted to medicine with him on consult. Discussed with Dr. Melendez for admission Was smoking cessation discussed for >3mins.? @ -No Was critical care preformed (if so, how long)? @ -No Were there social determinants of health that impacted care today? How? (Homelessness, low income, unemployed, alcoholism, drug addiction, transportation, low edu. Level, literacy, decrease access to med. care, skilled nursing, rehab)? @ -No Was there de-escalation of care discussed even if they declined (Discuss DNR or withdrawal of care, Hospice)? DNR status @ -No What co-morbidities impacted this encounter? (DM, HTN, Smoking, COPD, CAD, Cancer, CVA, ARF, Chemo, Hep., AIDS, mental health diagnosis, sleep apnea, morbid obesity)? @ -None Was patient admitted / discharged? Hospital course, mention meds given and route, prescriptions, significant lab abnormalities, going to OR and other pertinent info. @ -46-year-old female with recent colonoscopy presents to the ER for pro gressive GI bleed. On previous school patient had polyp and internal hemorrhoid that at the time wasn't bleeding. Patient complaining of significant symptoms of lower rectal bleeding. Hemoglobin is 10.2 which is declining since earlier this month. Patient will be admitted Undiagnosed new problem with uncertain prognosis? @ -No Drug Therapy requiring intensive monitoring for toxicity (Heparin, Nitro, Insulin, Cardizem)? @ -No Were any procedures done? @ -No Diagnosis/symptom? Acute, or Chronic, or Acute on Chronic? Uncomplicated (without systemic symptoms) or Complicated (systemic symptoms)? @ -1. Acute GI bleed Side effects of treatment? @ -No Exacerbation, Progression, or Severe Exacerbation? @ -Progression Poses a threat to life or bodily function? How? (Chest pain, [place], [place], pneumonia, PE, COPD, DKA, ARF, appy, cholecystitis, CVA, Diverticulitis, Homicidal, Suicidal, threat to staff... and all critical care pts) @ -yes - Lab Data Result diagrams: 12/08/22 12:31 12/08/22 12:31 Lab Results 12/08/22 12/08/22 12/08/22 Range/Units 12:31 12:31 12:31 WBC 5.6 (3.8-10.6) k/uL RBC 3.44 L (3.80-5.40) m/uL Hgb 10.2 L (11.4-16.0) gm/dL Hct 30.0 L (34.0-46.0) % MCV 87.3 (80.0-100.0) fL MCH 29.6 (25.0-35.0) pg MCHC 33.9 (31.0-37.0) g/dL RDW 13.6 (11.5-15.5) % Plt Count 252 (150-450) k/uL MPV 8.8 Neutrophils % 77 % Lymphocytes % 16 % Monocytes % 4 % Eosinophils % 1 % Basophils % 0 % Neutrophils # 4.3 (1.3-7.7) k/uL Lymphocytes # 0.9 L (1.0-4.8) k/uL Monocytes # 0.2 (0-1.0) k/uL Eosinophils # 0.1 (0-0.7) k/uL Basophils # 0.0 (0-0.2) k/uL Sodium 137 (137-145) mmol/L Potassium 3.7 (3.5-5.1) mmol/L Chloride 104 (98-107) mmol/L Carbon Dioxide 26 (22-30) mmol/L Anion Gap 7 mmol/L BUN 11 (7-17) mg/dL Creatinine 0.60 (0.52-1.04) mg/dL Est GFR (CKD-EPI)AfAm >90 (>60 ml/min/1.73 sqM) Est GFR (CKD-EPI)NonAf >90 (>60 ml/min/1.73 sqM) Glucose 95 (74-99) mg/dL Calcium 8.9 (8.4-10.2) mg/dL Blood Type Recheck No Previous Record Bld Type Recheck Status CABO Indicated Spec Expiration Date 12/11/20222330 Disposition Clinical Impression: GI bleed Disposition: ADMITTED IP TO THIS [facility] Condition: Serious Referrals: Stiven Jennings MD [Primary Care Provider] - 1-2 days Decision Time: 14:08
[2022-12-08 12:40] LABS: Basophils % (A) 0 %; Eosinophils # (A) 0.1 k/uL (0-0.7); Eosinophils % (A) 1 %; HGB 10.2 gm/dL (11.4-16.0); Lymphocytes # (A) 0.9 k/uL (1.0-4.8); Lymphocytes % (A) 16 %; MCH 29.6 pg (25.0-35.0); MCHC 33.9 g/dL (31.0-37.0); MCV 87.3 fL (80.0-100.0); Mean Platelet Volume 8.8; Monocytes # (A) 0.2 k/uL (0-1.0); Monocytes % (A) 4 %; Neutrophils # (A) 4.3 k/uL (1.3-7.7); Neutrophils % (A) 77 %; Platelet Count 252 k/uL (150-450); RBC 3.44 m/uL (3.80-5.40); RDW 13.6 % (11.5-15.5); WBC 5.6 k/uL (3.8-10.6)
[2022-12-08] MEDS ORDERED: KETOROLAC 15 MG/ML 1 ML VIAL IVP STA (12:49)
[2022-12-08] MEDS ORDERED: ONDANSETRON 4 MG/2 ML VIAL IVP STA (12:49)
[2022-12-08] MEDS ORDERED: diphenhydrAMINE 50 MG/ML 1 ML VIAL IVP STA (12:49)
[2022-12-08] MEDS ORDERED: SODIUM CHLORIDE 0.9% 1,000 ML IV STA (12:49)
[2022-12-08 13:07] LABS: African American GFR (CKD) >90 (>60 ml/min/1.73 sqM); Anion Gap 7 mmol/L; Blood Urea Nitrogen 11 mg/dL (7-17); Calcium 8.9 mg/dL (8.4-10.2); Carbon Dioxide 26 mmol/L (22-30); Chloride 104 mmol/L (98-107); Glucose 95 mg/dL (74-99); Non-African American GFR(CKD) >90 (>60 ml/min/1.73 sqM); Potassium 3.7 mmol/L (3.5-5.1); Sodium 137 mmol/L (137-145)
[2022-12-08] MEDS ORDERED: NALOXONE 0.4 MG/ML 1 ML VIAL IV PRN (14:04)
[2022-12-08] MEDS: SODIUM CHLORIDE 0.9% 1,000 ML IV SCH (14:40)
[2022-12-08] MEDS ORDERED: ONDANSETRON 4 MG/2 ML VIAL IVP PRN (15:00)
--- NOTE | 2022-12-08 15:01 | P.GSCN ---
History of Present Illness Consult date: 12/08/22 History of present illness: CHIEF COMPLAINT: GI bleeding HISTORY OF PRESENT ILLNESS: This is a 46-year-old female with a known history of internal hemorrhoids. She had a colonoscopy with Dr. Mccarthy 10 days ago that had shown cecal polyp, sigmoid colon polyp and grade 2 internal hemorrhoids. No active bleeding at that time. Patient reports that she's been dealing with bleeding hemorrhoids for about 2 weeks. She has at times sharp stabbing pain in the rectum. She is actually had blood squirting out from the rectum. Her hemoglobin on December 05 was 9.3. And hemoglobin today is 10.2. Patient admits to having issues with constipation. She's had 2 vaginal childbirths as well as a history of a rectocele with repair and hysterectomy. She denies being on any blood thinners. Denies any cardiac history. She does complain of nausea. PAST MEDICAL HISTORY: See below PAST SURGICAL HISTORY: See below MEDICATIONS: See below ALLERGIES: See below SOCIAL HISTORY: No illicit drug use. REVIEW OF SYSTEMS: CONSTITUTIONAL: Denies fever or chills. HEENT: Denies blurred vision, vision changes, or eye pain. Denies hemoptysis CARDIOVASCULAR: Denies chest pain or pressure. RESPIRATORY: No shortness of breath. GASTROINTESTINAL: See HPI for pertinent findings HEMATOLOGIC: Denies bleeding disorders. GENITOURINARY: Denies any blood in urine or increased urinary frequency. SKIN: Denies pruitis. Denies rash. PHYSICAL EXAM: VITAL SIGNS: Reviewed GENERAL: Well-developed in no acute distress. HEENT: No sclera icterus. Extraocular movements grossly intact. Moist buccal mucosa. Head is atraumatic, normocephalic. No nasal drainage. ABDOMEN: Soft. Nondistended. Nontender NEUROLOGIC: Alert and oriented. Cranial nerves II through XII grossly intact. LABORATORY DATA: WBC 5.6 Hgb 10.2 platelets 252 Sodium 137 potassium 3.7 creatinine 0.60 IMAGING: ASSESSMENT: 1. Acute GI bleed likely due to bleeding internal hemorrhoid PLAN: -Patient scheduled for exam under anesthesia with possible hemorrhoidectomy -Keep patient nothing by mouth after midnight -Okay for clear liquid -Continue monitor hemoglobin -Continue monitor for any signs or symptoms of bleeding Thank you for this consultation Physician Student Affairs Dean note has been reviewed by physician. Signing provider agrees with the documented findings, assessment, and plan of care. Consult Past Medical History Past Medical History: No Reported History Additional Past Medical History / Comment(s): treatment resistive depression and anxiety, states has been hospitalized 4 times over the last 10 years for it History of Any Multi-Drug Resistant Organisms: None Reported Past Surgical History: Hysterectomy Additional Past Surgical History / Comment(s): gastric, Past Psychological History: Anxiety, Depression Smoking Status: Never smoker Past Alcohol Use History: None Reported Past Drug Use History: None Reported Medications and Allergies Home Medications Medication Instructions Recorded Confirmed Type Dextroamphetamine/Amphetamine 15 mg PO DAILY 11/27/22 12/08/22 History [Adderall Xr 15 mg Capsule] Dextroamphetamine/Amphetamine 10 mg PO DAILY@1200 11/27/22 12/08/22 History [Adderall] QUEtiapine [SEROquel] 100 mg PO HS 11/27/22 12/08/22 History Vilazodone HCl [Viibryd] 20 mg PO DAILY 11/27/22 12/08/22 History Vsl #3 1 cap PO DAILY 11/27/22 12/08/22 History Hydrocortisone Suppository 25 mg RECTAL DAILY 12/08/22 12/08/22 History [Anusol-Hc] Allergies Allergy/AdvReac Type Severity Reaction Status Date / Time morphine Allergy Facial Verified 12/08/22 12:29 Swelling silver Allergy Unknown Verified 12/08/22 12:29 sulfamethoxazole Allergy Rash/Hives Verified 12/08/22 12:29 [From Bactrim] trimethoprim [From Bactrim] Allergy Rash/Hives Verified 12/08/22 12:29 Surgical - Exam Vital Signs Temp Pulse Resp BP Pulse Ox 97.6 F 88 18 143/94 99 12/08/22 11:23 12/08/22 11:23 12/08/22 11:23 12/08/22 11:23 12/08/22 11:23 Results - Labs 12/08/22 12:31 12/08/22 12:31 Abnormal Lab Results - Last 24 Hours (Table) 12/08/22 Range/Units 12:31 RBC 3.44 L (3.80-5.40) m/uL Hgb 10.2 L (11.4-16.0) gm/dL Hct 30.0 L (34.0-46.0) % Lymphocytes # 0.9 L (1.0-4.8) k/uL Diabetes panel 12/08/22 Range/Units 12:31 Sodium 137 (137-145) mmol/L Potassium 3.7 (3.5-5.1) mmol/L Chloride 104 (98-107) mmol/L Carbon Dioxide 26 (22-30) mmol/L BUN 11 (7-17) mg/dL Creatinine 0.60 (0.52-1.04) mg/dL Glucose 95 (74-99) mg/dL Calcium 8.9 (8.4-10.2) mg/dL Calcium panel 12/08/22 Range/Units 12:31 Calcium 8.9 (8.4-10.2) mg/dL Pituitary panel 12/08/22 Range/Units 12:31 Sodium 137 (137-145) mmol/L Potassium 3.7 (3.5-5.1) mmol/L Chloride 104 (98-107) mmol/L Carbon Dioxide 26 (22-30) mmol/L BUN 11 (7-17) mg/dL Creatinine 0.60 (0.52-1.04) mg/dL Glucose 95 (74-99) mg/dL Calcium 8.9 (8.4-10.2) mg/dL Adrenal panel 12/08/22 Range/Units 12:31 Sodium 137 (137-145) mmol/L Potassium 3.7 (3.5-5.1) mmol/L Chloride 104 (98-107) mmol/L Carbon Dioxide 26 (22-30) mmol/L BUN 11 (7-17) mg/dL Creatinine 0.60 (0.52-1.04) mg/dL Glucose 95 (74-99) mg/dL Calcium 8.9 (8.4-10.2) mg/dL
--- NOTE | 2022-12-08 18:02 | P.HPIM ---
History of Present Illness H&P Date: 12/08/22 46-year-old female with PMH of anal fissure and external hemorrhoids, severe anxiety presents to the ED for rectal bleeding. She was recently admitted from 11/27-11/28 for similar symptoms. She underwent colonoscopy with Dr. Mccarthy, polypectomy was performed and she was diagnosed with internal hemorrhoids. Patient reports rectal bleeding has been progressively getting worse since her previous discharge. This prompted her to come to the ED. She denies any headache, lower extremity edema, nausea or vomiting, fever or chills, cough, chest pain, shortness of breath, palpitations, changes in urination or bowel habits. No changes in appetite or weight. She denies any dizziness, numbness/weakness/extremities. In the ED, vital signs are stable. CBC showed hemoglobin of 10.2. BMP was within normal limits. Patient is admitted for further workup and management of symptoms. Pertinent positives and negatives as discussed in HPI, a complete review of systems was performed and all other systems are negative. General: non toxic, no distress, appears at stated age Derm: warm, dry Head: atraumatic, normocephalic, symmetric Eyes: EOMI, no lid lag, anicteric sclera Mouth: no lip lesion, mucus membranes moist Cardiovascular: S1S2 reg, no murmur Lungs: CTA bilateral, no rhonchi, no rales , no accessory muscle use Abdominal: soft, nontender to palpation, no guarding, no appreciable organomegaly Ext: no gross muscle atrophy, no edema, no contractures Neuro: no focal neuro deficits Psych: Alert, oriented, appropriate affect Rectal bleeding Chronic conditions: anal fissure and external hemorrhoids, severe anxiety Based on my assessment of this patient, this patient meets a high complexity level of care. I have reviewed the following search consultant notes: None. I have reviewed the results of the following tests: CBC showed hemoglobin of 10.2. BMP was within normal limits. I have ordered the following tests: CBC is ordered for tomorrow morning. I have discussed the care of this patient with the following independent historian: None. I have independently interpreted the following test below: None. I have discussed the management of this patient with the following physician: The case was discussed with ED physician and decision made to admit the patient for workup of GI bleed. This patient has a high risk of morbidity due to the following reasons: Patient has an acute diagnosis of rectal bleeding likely secondary to external hemorrhoids that poses a threat to life or bodily function. Plans for hemorrhoidectomy tomorrow as per surgery. Nothing by mouth after midnight. Repeat CBC tomorrow morning. No current indication for blood transfusion. Zofran 4 mg IV every 6 hours as needed for nausea or vomiting. Ativan 1 mg IV Q4H as needed for anxiety. Restart Vilazodone 20 mg PO QD, Adderall 25 mg PO QD and Seroquel 100 mg PO QHS. Patient names her decision maker if she can't make decisions for himself. Patient would like to be full code. Past Medical History Past Medical History: No Reported History Additional Past Medical History / Comment(s): treatment resistive depression and anxiety, states has been hospitalized 4 times over the last 10 years for it History of Any Multi-Drug Resistant Organisms: None Reported Past Surgical History: Hysterectomy Additional Past Surgical History / Comment(s): gastric, Past Psychological History: Anxiety, Depression Smoking Status: Never smoker Past Alcohol Use History: None Reported Past Drug Use History: None Reported Medications and Allergies Home Medications Medication Instructions Recorded Confirmed Type Dextroamphetamine/Amphetamine 15 mg PO DAILY 11/27/22 12/08/22 History [Adderall Xr 15 mg Capsule] Dextroamphetamine/Amphetamine 10 mg PO DAILY@1200 11/27/22 12/08/22 History [Adderall] QUEtiapine [SEROquel] 100 mg PO HS 11/27/22 12/08/22 History Vilazodone HCl [Viibryd] 20 mg PO DAILY 11/27/22 12/08/22 History Vsl #3 1 cap PO DAILY 11/27/22 12/08/22 History Hydrocortisone Suppository 25 mg RECTAL DAILY 12/08/22 12/08/22 History [Anusol-Hc] Allergies Allergy/AdvReac Type Severity Reaction Status Date / Time morphine Allergy Facial Verified 12/08/22 12:29 Swelling silver Allergy Unknown Verified 12/08/22 12:29 sulfamethoxazole Allergy Rash/Hives Verified 12/08/22 12:29 [From Bactrim] trimethoprim [From Bactrim] Allergy Rash/Hives Verified 12/08/22 12:29 Physical Exam Vitals: Vital Signs Temp Pulse Resp BP Pulse Ox 12/08/22 14:00 71 12 147/88 12/08/22 13:30 75 11 L 142/88 100 12/08/22 13:00 75 12 138/91 100 12/08/22 12:31 16 138/91 100 12/08/22 11:23 97.6 F 88 18 143/94 99 Intake and Output 12/08/22 12/08/22 12/08/22 06:59 14:59 22:59 Other: Weight 70.307 kg Results CBC & Chem 7: 12/08/22 12:31 12/08/22 12:31 Labs: Abnormal Lab Results - Last 24 Hours (Table) 12/08/22 Range/Units 12:31 RBC 3.44 L (3.80-5.40) m/uL Hgb 10.2 L (11.4-16.0) gm/dL Hct 30.0 L (34.0-46.0) % Lymphocytes # 0.9 L (1.0-4.8) k/uL
[2022-12-08] MEDS: QUEtiapine 100 MG TAB PO SCH (21:34)
[2022-12-08] MEDS ORDERED: ACETAMINOPHEN TAB 325 MG TAB PO PRN (22:25)
[2022-12-09 06:42] LABS: HCT 28.1 % (34.0-46.0); HGB 9.2 gm/dL (11.4-16.0); Hypochromasia Slight; MCHC 32.7 g/dL (31.0-37.0); MCV 88.6 fL (80.0-100.0); Mean Platelet Volume 8.5; Platelet Count 234 k/uL (150-450); RBC 3.17 m/uL (3.80-5.40); RDW 13.7 % (11.5-15.5); WBC 4.7 k/uL (3.8-10.6)
[2022-12-09 07:04] LABS: African American GFR (CKD) >90 (>60 ml/min/1.73 sqM); Anion Gap 5 mmol/L; Blood Urea Nitrogen 12 mg/dL (7-17); Calcium 8.6 mg/dL (8.4-10.2); Carbon Dioxide 23 mmol/L (22-30); Chloride 108 mmol/L (98-107); Glucose 94 mg/dL (74-99); Non-African American GFR(CKD) >90 (>60 ml/min/1.73 sqM); Potassium 4.2 mmol/L (3.5-5.1); Sodium 136 mmol/L (137-145)
[2022-12-09] MEDS: LORazepam 2 MG/ML INJ IV PRN (07:34)
[2022-12-09] MEDS ORDERED: LACTATED RINGERS 1,000 ML IV ONE ×3 (08:04→10:22)
[2022-12-09] MEDS ORDERED: DEXAMETHASONE SOD PHOSPHATE 4 MG/ML 1 ML VIAL IVP ONE (08:10)
[2022-12-09] MEDS ORDERED: ONDANSETRON 4 MG/2 ML VIAL IVP ONE (08:10)
[2022-12-09] MEDS ORDERED: DEXTROAMPHETAMINE PO SCH (09:00)
[2022-12-09] MEDS ORDERED: AMPHETAMINE PO SCH (09:00)
[2022-12-09] MEDS ORDERED: SUCCINYLCHOLINE CHLORIDE 200 MG/10 ML VIAL IV ONE (09:15)
[2022-12-09] MEDS ORDERED: HEPARIN SODIUM,PORCINE 5,000 UNIT/ML 1 ML VIAL ONE (09:15)
[2022-12-09] MEDS ORDERED: PROPOFOL 10 MG/ML 20 ML VIAL IV ONE (09:15)
[2022-12-09] MEDS ORDERED: MIDAZOLAM 2 MG/2 ML VIAL ONE (09:15)
[2022-12-09] MEDS ORDERED: SODIUM CHLORIDE 0.9% 100 ML BAG ONE (09:15)
[2022-12-09] MEDS ORDERED: fentaNYL (PF) 50 MCG/ML 2 ML AMP ONE (09:15)
[2022-12-09] MEDS ORDERED: LIDOCAINE 2% INJ 20 MG/ML (2 ML VIAL) ONE (09:15)
[2022-12-09] MEDS ORDERED: ceFAZolin 1,000 MG VIAL ONE (09:15)
[2022-12-09] MEDS ORDERED: SODIUM CHLORIDE 0.9% 50 ML with ceFAZolin 2,000 MG IV ONE ×2 (09:39)
[2022-12-09] MEDS ORDERED: BUPIVACAIN-EPI 0.5%-1:200,000 30 ML VIAL SQ ONE (09:42)
--- NOTE | 2022-12-09 10:05 | P.OP ---
Date of Procedure: 12/09/22 Preoperative Diagnosis: Internal and external hemorrhoids Postoperative Diagnosis: Internal and external hemorrhoids Procedure(s) Performed: Internal and external hemorrhoid ectomy Anesthesia: WALDO Surgeon: Rafael Acosta Estimated Blood Loss (ml): 5 Pathology: other (Hemorrhoids) Condition: stable Disposition: PACU Description of Procedure: The patient's placed on the operative table in supine position. She received general anesthesia. She then placed in the prone jackknife position. Her anus was prepped and draped usual fashion. Patient had large internal/external hemorrhoids. The anal retractors placed in the anus. The anus was examined.. There is no evidence of any obvious hemorrhoidal bleeding. The patient a very large fleshy internal and external hemorrhoids. The left lateral column hemorrhoids were grasped. Allis clamps were used to grasp some is. The Harmonic scissors were then used to perform hemorrhoidectomy. . The right anterior and right posterior hemorrhoid columns were grasped and removed in identical fashion. There is no bleeding seen. There was no source of any rectal bleeding seen at the anus. The instrument packed with Gelfoam. Patient top she will was sent to recovery room stable condition.
[2022-12-09] MEDS: HYDROmorphone 1 MG/ML 1 ML SYRINGE IVP PRN ×4 (11:08→23:37)
[2022-12-09] MEDS ORDERED: Dextroamphetamine/Amphetamine [Adderall] 10 MG Tablet PO SCH (12:00)
[2022-12-09] MEDS: HYDROcodone/APAP 7.5-325MG 1 EACH TAB PO PRN ×2 (13:04→19:54)
--- NOTE | 2022-12-09 14:13 | P.PN ---
Subjective Progress Note Date: 12/09/22 Hospital course: Patient is a very pleasant 46-year-old female with a past medical history of anxiety and depression who was recently diagnosed with internal and external hemorrhoids, anal fissure and had colonic polyp removed on 11/28/22. Patient presented to the emergency department with a chief complaint of rectal bleeding with reports of bright red blood per rectum. Patient underwent full evaluation in the emergency department. CBC showing mild normocytic anemia with hemoglobin of 10.2. BMP unremarkable. Patient was found to have active bright red blood per rectum. Patient was admitted under our services with consultation to general surgery. Patient underwent internal and external hemorrhoidectomy today with Dr. Acosta. Physical exam: Patient seen and fully evaluated at bedside upon return from hemorrhoidectomy. Patient reports pain to rectum but otherwise denies having any other complaints at this time. Vital signs reviewed and stable. General: Nontoxic, no distress and appears stated age. Derm: Skin warm and dry, normal coloration for ethnicity. Head: Atraumatic, normocephalic and symmetric. Eyes: EOMs intact, no lid lag, and anicteric sclera Mouth: no lip lesions, mucus membranes moist Cardiovascular: regular rate and rhythm with normal S1S2, no murmur, positive posterior tibial pulses bilaterally, and cap refill < 2 seconds. Lungs: Respirations even, regular, and unlabored on room air. Lungs CTA bilaterally, no rhonchi, no rales, no wheezing, and no accessory muscle usage. Abdominal: soft, nontender to palpation, no guarding, no appreciable organomegaly Ext: ROM intact. No gross muscle atrophy, no edema, no contractures Neuro: Speech clear, face symmetrical and CN II-XII grossly intact with no noted focal neuro deficits Psych: Alert and oriented to person, place, time, and situation. Appropriate and pleasant affect. Assessment and Plan of Care: Rectal bleeding, lower GI bleed Internal and external hemorrhoids History of anal fissure Normocytic anemia -Reviewed morning labs. Hemoglobin stable but decreasing to 9.2 from previous 10.2. -Patient underwent internal and external hemorrhoidectomy today with Dr. Acosta. -Gen. surgery continues to follow and discussed plan of care with general surgery PA, patient to be monitored overnight to observe for any signs of active bleeding. -Order placed for repeat CBC and BMP with a.m. labs to monitor her anemia closely. -Symptomatic care and pain management. CODE STATUS: Full code DVT prophylaxis: SCDs Discussed with: Patient, RN, and general surgery PA Anticipated discharge date: 24-[address]: Home Patient was seen independently by Nurse Pracitioner. This document was prepared using [employer] dictation software. Please allow for errors in rehanger, while rare they do occur. West Waggoner LOCAL OWNER OPERATOR TRUCK DRIVER rendered care for this patient independently, reviewed the findings and plan as documented in the note above. I did not physically speak with or examine the patient on this date. Objective - Vital Signs Vital signs: Vital Signs Temp 98.9 F 12/09/22 08:04 Pulse 93 12/09/22 08:04 Resp 14 12/09/22 08:04 BP 138/70 12/09/22 08:04 Pulse Ox 100 12/09/22 08:04 FiO2 Intake & Output 12/08/22 12/09/22 12/09/22 18:59 06:59 18:59 Intake Total 250 Balance 250 Weight 70.307 kg 70.307 kg Intake: Oral 250 Other: Voiding Method Toilet # Voids 2 - Labs CBC & Chem 7: 12/09/22 06:25 12/09/22 06:25 Labs: Abnormal Lab Results - Last 24 Hours (Table) 12/08/22 12/09/22 12/09/22 Range/Units 12:31 06:25 06:25 RBC 3.44 L 3.17 L (3.80-5.40) m/uL Hgb 10.2 L 9.2 L (11.4-16.0) gm/dL Hct 30.0 L 28.1 L (34.0-46.0) % Lymphocytes # 0.9 L (1.0-4.8) k/uL Sodium 136 L (137-145) mmol/L Chloride 108 H (98-107) mmol/L
[2022-12-09] MEDS: SODIUM CHLORIDE 0.9% 1,000 ML IV SCH (16:14)
[2022-12-09] MEDS: QUEtiapine 100 MG TAB PO SCH (19:53)
[2022-12-09] MEDS: DOCUSATE 100 MG CAP PO SCH (19:54)
[2022-12-10] MEDS: HYDROmorphone 1 MG/ML 1 ML SYRINGE IVP PRN ×6 (02:27→22:15)
[2022-12-10] MEDS: LORazepam 2 MG/ML INJ IV PRN ×2 (02:27→20:21)
[2022-12-10] MEDS: DOCUSATE 100 MG CAP PO SCH ×2 (08:28→20:21)
[2022-12-10] MEDS: HYDROcodone/APAP 7.5-325MG 1 EACH TAB PO PRN ×2 (10:00→16:52)
[2022-12-10 10:56] LABS: HCT 25.2 % (37.2-46.3); HGB 7.8 g/dL (12.0-15.0); MCH 28.2 pg (27.0-32.0); Mean Platelet Volume 11.9 fL (9.5-12.2); NRBC Per 100 WBC 0 /100 WBCS (0.0-0.0); Platelet Count 231 X 10*3/uL (140-440); RBC 2.77 X 10*6/uL (4.10-5.20); RDW 13.3 % (11.5-14.5); WBC 6.46 X 10*3/uL (4.50-10.00)
[2022-12-10 11:09] LABS: African American GFR (CKD) 119.9 (60.0-200.0); Anion Gap 9.2 mmol/L (10.00-18.00); BUN/Creat Ratio 12.39 Ratio (12.00-20.00); Blood Urea Nitrogen 8.4 mg/dL (9.0-27.0); Calcium 8.7 mg/dL (8.7-10.3); Non-African American GFR(CKD) 103.5 (60.0-200.0); Potassium 3.7 mmol/L (3.5-5.5)
--- NOTE | 2022-12-10 14:07 | P.PN ---
Subjective Progress Note Date: 12/10/22 CHIEF COMPLAINT: Hemorrhoids HISTORY OF PRESENT ILLNESS: Patient is postop day #1 status post internal and external hemorrhoidectomy. Patient complains of rectal pain. She did have some bleeding yesterday afternoon per rectum. The bleeding has decreased in amount. This morning as she had a drop of blood with flatus. Patient reports that she's having difficulty urinating. And also pain with passing flatus. Denies any nausea vomiting. Reports decrease oral intake. Afebrile. WBC is 6.46 Hgb down from 9.2 to 7.8 platelets 231 sodium is 140 potassiums 3.7 creatinine 0.7 PHYSICAL EXAM: VITAL SIGNS: Reviewed. GENERAL: Well-developed in no acute distress. ABDOMEN: Soft. Nondistended. Nontender. NEUROLOGIC: Alert and oriented. Cranial nerves II through XII grossly intact. ASSESSMENT: 1. Internal and external hemorrhoids status post hemorrhoidectomy 2. Anemia 3. Urinary retention PLAN: -Bladder scan ordered with evidence of urinary retention. Patient will be straight cathed. Continue to monitor postvoid residuals -Continue to monitor hemoglobin -Continue pain management -Encourage patient to ambulate Physician Oil Field Technician note has been reviewed by physician. Signing provider agrees with the documented findings, assessment, and plan of care. Objective - Vital Signs Vital signs: Vital Signs Temp 98.5 F 12/10/22 07:02 Pulse 83 12/10/22 10:01 Resp 16 12/10/22 07:02 BP 129/83 12/10/22 10:01 Pulse Ox 99 12/10/22 07:02 FiO2 Intake & Output 12/09/22 12/10/22 12/10/22 18:59 06:59 18:59 Intake Total 1628 500 Output Total 5 714 Balance 1623 500 -714 Weight 70.307 kg Intake: IV 1150 Oral 478 500 Output: Urine 700 Post Void Residual 14 Estimated Blood Loss 5 Other: Voiding Method Toilet # Voids 4 # Bowel Movements 2 - Labs CBC & Chem 7: 12/10/22 06:47 12/10/22 06:47 Labs: Abnormal Lab Results - Last 24 Hours (Table) 12/10/22 12/10/22 Range/Units 06:47 06:47 RBC 2.77 L (4.10-5.20) X 10*6/uL Hgb 7.8 L (12.0-15.0) g/dL Hct 25.2 L (37.2-46.3) % MCHC 31.0 L (32.0-37.0) g/dL Anion Gap 9.20 L (10.00-18.00) mmol/L BUN 8.4 L (9.0-27.0) mg/dL
[2022-12-10] MEDS: SODIUM CHLORIDE 0.9% 1,000 ML IV SCH (14:40)
--- NOTE | 2022-12-10 17:14 | P.PN ---
Subjective Progress Note Date: 12/10/22 Hospital course: Patient is a very pleasant 46-year-old female with a past medical history of anxiety and depression who was recently diagnosed with internal and external hemorrhoids, anal fissure and had colonic polyp removed on 11/28/22. Patient presented to the emergency department with a chief complaint of rectal bleeding with reports of bright red blood per rectum. Patient underwent full evaluation in the emergency department. CBC showing mild normocytic anemia with hemoglobin of 10.2. BMP unremarkable. Patient was found to have active bright red blood per rectum. Patient was admitted under our services with consultation to general surgery. Patient underwent internal and external hemorrhoidectomy 12/09/[address] Acosta. Physical exam: Patient seen and fully evaluated at bedside, she reports continued significant rectal pain status post hemorrhoidectomy. she also states having a few "drops" of blood per rectum status post procedure but has not yet had a bowel movement or actual episode of hematochezia. In addtion, reported experiencing urinary retention.bladder scan completed this morning around 10 AM showing 700 mL of urinary retention. Patient requiring straight catheterization 1. Pt denies having any other complaints or concerns at this time. Vital signs reviewed and stable. General: Nontoxic, no distress and appears stated age. Derm: Skin warm and dry, normal coloration for ethnicity. Head: Atraumatic, normocephalic and symmetric. Eyes: EOMs intact, no lid lag, and anicteric sclera Mouth: no lip lesions, mucus membranes moist Cardiovascular: regular rate and rhythm with normal S1S2, no murmur, positive posterior tibial pulses bilaterally, and cap refill < 2 seconds. Lungs: Respirations even, regular, and unlabored on room air. Lungs CTA bilaterally, no rhonchi, no rales, no wheezing, and no accessory muscle usage. Abdominal: soft, nontender to palpation, no guarding, no appreciable organomegaly Ext: ROM intact. No gross muscle atrophy, no edema, no contractures Neuro: Speech clear, face symmetrical and CN II-XII grossly intact with no noted focal neuro deficits Psych: Alert and oriented to person, place, time, and situation. Appropriate and pleasant affect. Assessment and Plan of Care: Acute blood loss anemia on Chronic anemia Rectal bleeding, lower GI bleed Internal and external hemorrhoids status post internal and external hemorrhoidectomy on 12/09/22 History of anal fissure -Reviewed morning labs. Hemoglobin decreasing to 7.8. Patient reports having a few "drops" of blood per rectum status post procedure but has not yet had a bowel movement or actual episode of hematochezia. -Gen. surgery continues to follow and discussed plan of care with general surgery PA, recommending continued monitoring to observe for any signs of active bleeding. -Order placed for repeat CBC with a.m. labs to monitor her hemoglobin closely. Again hemoglobin 7.8 at this time no need for transfusion but will continue to m onitor and transfuse for Hgb less than 7. -Symptomatic care and pain management. Urinary retention -patient reported experiencing urinary retention.bladder scan completed this morning around 10 AM showing 700 mL of urinary retention. Patient requiring straight catheterization 1. -Patient continues to report excessive rectal pain. Believe urinary retention as resulting from surgical pain. Will continue with bladder management at this time and patient to be straight cathed as needed. CODE STATUS: Full code DVT prophylaxis: SCDs Discussed with: Patient, RN, and general surgery PA Anticipated discharge date: 24-[address]: Home Patient was seen independently by Nurse Pracitioner. This document was prepared using [employer] dictation software. Please allow for errors in spooler, while rare they do occur. West Waggoner NP rendered care for this patient independently, reviewed the findings and plan as documented in the note above. I did not physically speak with or examine the patient on this date. Objective - Vital Signs Vital signs: Vital Signs Temp 98.5 F 12/10/22 07:02 Pulse 73 12/10/22 07:02 Resp 16 12/10/22 07:02 BP 94/54 12/10/22 07:02 Pulse Ox 99 12/10/22 07:02 FiO2 Intake & Output 12/09/22 12/10/22 12/10/22 18:59 06:59 18:59 Intake Total 1628 500 Output Total 5 Balance 1623 500 Weight 70.307 kg Intake: IV 1150 Oral 478 500 Output: Estimated Blood Loss 5 Other: Voiding Method Toilet # Voids 4 # Bowel Movements 2 - Labs CBC & Chem 7: 12/10/22 06:47 12/10/22 06:47
[2022-12-10] MEDS: QUEtiapine 100 MG TAB PO SCH (20:21)
[2022-12-11] MEDS: HYDROmorphone 1 MG/ML 1 ML SYRINGE IVP PRN ×5 (02:33→20:06)
[2022-12-11] MEDS: DOCUSATE 100 MG CAP PO SCH ×2 (08:13→20:08)
[2022-12-11 09:34] LABS: HCT 24.1 % (37.2-46.3); HGB 7.6 g/dL (12.0-15.0); MCH 28.3 pg (27.0-32.0); MCHC 31.5 g/dL (32.0-37.0); MCV 89.6 fL (80.0-97.0); Mean Platelet Volume 11.2 fL (9.5-12.2); NRBC Per 100 WBC 0 /100 WBCS (0.0-0.0); Platelet Count 208 X 10*3/uL (140-440); RBC 2.69 X 10*6/uL (4.10-5.20); RDW 13.4 % (11.5-14.5); WBC 7.26 X 10*3/uL (4.50-10.00)
[2022-12-11] MEDS: HYDROcodone/APAP 7.5-325MG 1 EACH TAB PO PRN (10:07)
[2022-12-11] MEDS ORDERED: SODIUM FERRIC GLUCONAT-SUCROSE 125 MG in SODIUM CHLORIDE 0.9% 100 ML IVPB ONE (13:00)
--- NOTE | 2022-12-11 13:38 | P.PN ---
Subjective Progress Note Date: 12/11/22 Hospital course: Patient is a very pleasant 46-year-old female with a past medical history of anxiety and depression who was recently diagnosed with internal and external hemorrhoids, anal fissure and had colonic polyp removed on 11/28/22. Patient presented to the emergency department with a chief complaint of rectal bleeding with reports of bright red blood per rectum. Patient underwent full evaluation in the emergency department. CBC showing mild normocytic anemia with hemoglobin of 10.2. BMP unremarkable. Patient was found to have active bright red blood per rectum. Patient was admitted under our services with consultation to general surgery. Patient underwent internal and external hemorrhoidectomy 12/09/[address] Acosta. Physical exam: Patient seen and fully evaluated at bedside, she reports continued significant rectal pain status post hemorrhoidectomy. Patient denies bowel movement or passing flatus. RN and patient both again report another episode of urinary retention. This is believed to be secondary to patient's uncontrolled pain. Vital signs reviewed and stable. General: Nontoxic, no distress and appears stated age. Derm: Skin warm and dry, normal coloration for ethnicity. Head: Atraumatic, normocephalic and symmetric. Eyes: EOMs intact, no lid lag, and anicteric sclera Mouth: no lip lesions, mucus membranes moist Cardiovascular: regular rate and rhythm with normal S1S2, no murmur, positive posterior tibial pulses bilaterally, and cap refill < 2 seconds. Lungs: Respirations even, regular, and unlabored on room air. Lungs CTA b ilaterally, no rhonchi, no rales, no wheezing, and no accessory muscle usage. Abdominal: soft, nontender to palpation, no guarding, no appreciable organomegaly Ext: ROM intact. No gross muscle atrophy, no edema, no contractures Neuro: Speech clear, face symmetrical and CN II-XII grossly intact with no noted focal neuro deficits Psych: Alert and oriented to person, place, time, and situation. Appropriate and pleasant affect. Assessment and Plan of Care: Acute blood loss anemia on Chronic anemia Rectal bleeding, lower GI bleed Internal and external hemorrhoids status post internal and external hemorrhoidectomy on 12/09/22 History of anal fissure -Reviewed morning labs. Hemoglobin stable this morning at 7.6. Patient denies any further episodes of blood per rectum but also denies having bowel movement or passing flatus since surgical procedure. -Gen. surgery continues to follow and discussed plan of care with general surgery PA, recommending awaiting for patient to have bowel movement prior to discharge and continue to monitor for any signs of rectal bleeding. -Order placed for repeat CBC with a.m. labs to monitor her hemoglobin closely. Again hemoglobin 7.8 at this time no need for transfusion but will continue to monitor and transfuse for Hgb less than 7. -Symptomatic care and pain management. Urinary retention -Patient has required straight catheterization 2. Urinary retention likely secondary to pain patient is reporting and patient's inability to fully sit in proper position to urinate due to postsurgical discomfort. -Will continue with bladder management at this time and patient to be straight cathed as needed, order also placed for urinalysis. CODE STATUS: Full code DVT prophylaxis: SCDs Discussed with: Patient, RN, and general surgery PA Anticipated discharge date: 24-48 hours, general surgeon stating need to await for patient to have bowel movement prior to discharge Anticipated discharge place: Home Patient was seen independently by Nurse Pracitioner. This document was prepared using [employer] dictation software. Please allow for errors in manager of program, while rare they do occur. West Waggoner NP rendered care for this patient independently, reviewed the findings and plan as documented in the note above. I did not physically speak with or examine the patient on this magui Objective - Vital Signs Vital signs: Vital Signs Temp 98.3 F 12/11/22 08:00 Pulse 86 12/11/22 08:00 Resp 18 12/11/22 09:00 BP 126/76 12/11/22 08:00 Pulse Ox 100 12/11/22 08:00 FiO2 Intake & Output 12/10/22 12/11/22 12/11/22 18:59 06:59 18:59 Intake Total 750 Output Total 714 600 Balance -714 750 -600 Intake: Intake, IV Titration 500 Amount Sodium Chloride 0.9% 50 500 ml @ 0 mls/hr IV .STK-MED ONE with ceFAZolin 2,000 mg Rx#:[id number] Oral 250 Output: Urine 700 600 Post Void Residual 14 Other: Voiding Method Toilet Toilet Self-Catheterization # Voids 2 - Labs CBC & Chem 7: 12/11/22 05:29 12/10/22 06:47 Labs: Abnormal Lab Results - Last 24 Hours (Table) 12/10/22 12/10/22 Range/Units 06:47 06:47 RBC 2.77 L (4.10-5.20) X 10*6/uL Hgb 7.8 L (12.0-15.0) g/dL Hct 25.2 L (37.2-46.3) % MCHC 31.0 L (32.0-37.0) g/dL Anion Gap 9.20 L (10.00-18.00) mmol/L BUN 8.4 L (9.0-27.0) mg/dL
--- NOTE | 2022-12-11 13:42 | P.PN ---
Subjective Progress Note Date: 12/11/22 CHIEF COMPLAINT: Hemorrhoids HISTORY OF PRESENT ILLNESS: Patient is postop day #2 status post internal and external hemorrhoidectomy. Patient continues to complain of rectal pain. She reports no significant bleeding. Occasionally she'll have a drop of blood when she passes gas. She's having issues with urinary retention. He'll be straight cathed twice. Hemoglobin went from 7.8-7.6. Currently on a full liquid diet. Afebrile. WBC 7. 26 HGB stable 7.6 platelets 208 Patient seen and examined with Dr. blair PHYSICAL EXAM: VITAL SIGNS: Reviewed. GENERAL: Well-developed in no acute distress. ABDOMEN: Soft. Nondistended. Nontender. NEUROLOGIC: Alert and oriented. Cranial nerves II through XII grossly intact. ASSESSMENT: 1. Internal and external hemorrhoids status post hemorrhoidectomy 2. Anemia 3. Urinary retention PLAN: -Add IV Iron -Advance diet to regular -Encourage patient to ambulate -Repeat CBC in a.m. -Continue to monitor hemoglobin -Continue pain management Physician Ophthalmic Medical Technician note has been reviewed by physician. Signing provider agrees with the documented findings, assessment, and plan of care. Objective - Vital Signs Vital signs: Vital Signs Temp 98.3 F 12/11/22 08:00 Pulse 86 12/11/22 08:00 Resp 18 12/11/22 09:00 BP 126/76 12/11/22 08:00 Pulse Ox 100 12/11/22 08:00 FiO2 Intake & Output 12/10/22 12/11/22 12/11/22 18:59 06:59 18:59 Intake Total 750 Output Total 714 600 Balance -714 750 -600 Intake: Intake, IV Titration 500 Amount Sodium Chloride 0.9% 50 500 ml @ 0 mls/hr IV .STK-MED ONE with ceFAZolin 2,000 mg Rx#:[id number] Oral 250 Output: Urine 700 600 Post Void Residual 14 Other: Voiding Method Toilet Toilet Self-Catheterization # Voids 2 - Labs CBC & Chem 7: 12/11/22 05:29 12/10/22 06:47 Labs: Abnormal Lab Results - Last 24 Hours (Table) 12/11/22 Range/Units 05:29 RBC 2.69 L (4.10-5.20) X 10*6/uL Hgb 7.6 L (12.0-15.0) g/dL Hct 24.1 L (37.2-46.3) % MCHC 31.5 L (32.0-37.0) g/dL
[2022-12-11] MEDS: SODIUM CHLORIDE 0.9% 1,000 ML IV SCH (15:57)
[2022-12-11 18:52] LABS: Appearance,Urine Clear (Clear); Bilirubin,Urine Negative (Negative); Blood,Urine Negative (Negative); Color,Urine Yellow; Glucose,Urine (UA) Negative (Negative); Ketones,Urine Trace (Negative); Leukocyte Esterase,Urine Negative (Negative); Nitrite,Urine Negative (Negative); PH, Urine 6.5 (5.0-8.0); Protein,Urine Negative (Negative); Specific Gravity,Urine 1.016 (1.001-1.035); Urobilinogen,Urine <2.0 mg/dL (<2.0)
[2022-12-11] MEDS: QUEtiapine 100 MG TAB PO SCH (20:13)
[2022-12-12] MEDS: HYDROmorphone 1 MG/ML 1 ML SYRINGE IVP PRN ×6 (01:03→20:39)
[2022-12-12 08:33] LABS: HCT 23.5 % (37.2-46.3); HGB 7.2 g/dL (12.0-15.0); MCH 27.5 pg (27.0-32.0); MCHC 30.6 g/dL (32.0-37.0); MCV 89.7 fL (80.0-97.0); Mean Platelet Volume 11.4 fL (9.5-12.2); NRBC Per 100 WBC 0 /100 WBCS (0.0-0.0); Platelet Count 223 X 10*3/uL (140-440); RBC 2.62 X 10*6/uL (4.10-5.20); RDW 13.2 % (11.5-14.5); WBC 6.61 X 10*3/uL (4.50-10.00)
[2022-12-12] MEDS: DOCUSATE 100 MG CAP PO SCH (09:18)
[2022-12-12] MEDS ORDERED: LACTULOSE 20 GM/30 ML CUP PO PRN (10:50)
[2022-12-12] MEDS: KETOROLAC 15 MG/ML 1 ML VIAL IVP PRN ×2 (11:10→18:41)
[2022-12-12] MEDS: SENNOSIDES-DOCUSATE SODIUM 1 EACH TAB PO SCH ×2 (11:11→20:20)
[2022-12-12] MEDS: polyethylene glycoL 3350 17 GM POWD.PACK PO SCH (11:38)
[2022-12-12] MEDS ORDERED: CYANOCOBALAMIN 1,000 MCG/ML 1 ML VIAL IM ONE (12:00)
[2022-12-12] MEDS ORDERED: SODIUM FERRIC GLUCONAT-SUCROSE 125 MG in SODIUM CHLORIDE 0.9% 100 ML IVPB ONE (12:00)
--- NOTE | 2022-12-12 12:01 | P.PN ---
Subjective Progress Note Date: 12/12/22 She continues to have pain in rectal area, has had limited bowel movements. Hemoglobin slightly trending down. Gen: awake, alert HEENT: normocephalic, atraumatic, good hearing acuity, moist mucous membranes Resp: good air exchange, breathing comfortably with no accessory muscle use CVS: good distal perfusion x 4, GI: soft, NTTP, ND : no SPT, no CVAT, kelley catheter not present MSK: no pitting edema, no clubbing Neuro: non-focal, moving all extremities Psych: cooperative, euthymic mood Hospital course: Patient is a very pleasant 46-year-old female with a past medical history of anxiety and depression who was recently diagnosed with internal and external hemorrhoids, anal fissure and had colonic polyp removed on 11/28/22. Patient presented to the emergency department with a chief complaint of rectal bleeding with reports of bright red blood per rectum. Patient underwent full evaluation in the emergency department. CBC showing mild normocytic anemia with hemoglobin of 10.2. BMP unremarkable. Patient was found to have active bright red blood per rectum. Patient was admitted under our services with consultation to general surgery. Patient underwent internal and external hemorrhoidectomy 12/09/[address] Acosta. Assessment: Acute blood loss anemia on Chronic anemia Rectal bleeding, lower GI bleed Internal and external hemorrhoids status post internal and external hemorrho idectomy on 12/09/22 History of anal fissure Urinary retention Plan: Today, patient is afebrile, 98/57, heart rate 77, 98% on room air CBC shows hemoglobin of 7.2 this morning, slowly down trending from 7.6 yesterday Discussed the case with surgery today, they believe the patient should be monitored for now 24-48 hours depending on her hospital course, ongoing pain control, bowel regimen Continue Venofer Added Toradol 15 mg every 6 hours when necessary Added MiraLAX 17 g daily Added lactulose 20 g 4 times a day when necessary Discontinue docusate, added docusate/senna twice a day Encourage patient to ambulate today Patient is full code Objective - Vital Signs Vital signs: Vital Signs Temp 98.1 F 12/12/22 08:00 Pulse 77 12/12/22 08:00 Resp 18 12/12/22 09:00 BP 98/57 12/12/22 08:00 Pulse Ox 98 12/12/22 08:00 FiO2 Intake & Output 12/11/22 12/12/22 12/12/22 18:59 06:59 18:59 Intake Total 596 Output Total 600 Balance -600 596 Intake: Oral 596 Output: Urine 600 Other: Voiding Method Toilet Toilet Toilet # Voids 4 1 # Bowel Movements 1 - Labs CBC & Chem 7: 12/12/22 04:17 12/10/22 06:47 Labs: Abnormal Lab Results - Last 24 Hours (Table) 12/11/22 12/12/22 Range/Units 18:26 04:17 RBC 2.62 L (4.10-5.20) X 10*6/uL Hgb 7.2 L (12.0-15.0) g/dL Hct 23.5 L (37.2-46.3) % MCHC 30.6 L (32.0-37.0) g/dL Urine Ketones Trace H (Negative)
--- NOTE | 2022-12-12 13:10 | P.PN ---
Subjective Progress Note Date: 12/12/22 CHIEF COMPLAINT: Hemorrhoids HISTORY OF PRESENT ILLNESS: Patient is postop day #2 status post internal and external hemorrhoidectomy. Patient continues to complain of rectal pain. Patient reports a very small smear of a BM. She passed the packing from her anus yesterday. No significant bleeding. Afebrile. WBC is 6.61 Hgb staying about the same at 7.2. Hemoglobin was 7.6 yesterday Patient seen and examined with Dr. blair PHYSICAL EXAM: VITAL SIGNS: Reviewed. GENERAL: Well-developed in no acute distress. ABDOMEN: Soft. Nondistended. Nontender. NEUROLOGIC: Alert and oriented. Cranial nerves II through XII grossly intact. Rectal exam: Patient has definite inflammation around the anus ASSESSMENT: 1. Internal and external hemorrhoids status post hemorrhoidectomy 2. Anemia 3. Urinary retention PLAN: -Add Metamucil to keep stools soft -Continue stool softeners -We'll give another dose of IV iron today and tomorrow for anemia -Also give a B12 injection for anemia. Patient has history of gastric bypass -Continue regular diet -Encourage patient to ambulate -Repeat CBC in a.m. -Continue pain management Physician [employer] note has been reviewed by physician. Signing provider agrees with the documented findings, assessment, and plan of care. Objective - Vital Signs Vital signs: Vital Signs Temp 98.1 F 12/12/22 08:00 Pulse 77 12/12/22 08:00 Resp 18 12/12/22 09:00 BP 98/57 12/12/22 08:00 Pulse Ox 98 12/12/22 08:00 FiO2 Intake & Output 12/11/22 12/12/22 12/12/22 18:59 06:59 18:59 Intake Total 596 Output Total 600 Balance -600 596 Intake: Oral 596 Output: Urine 600 Other: Voiding Method Toilet Toilet Toilet # Voids 4 1 # Bowel Movements 1 - Labs CBC & Chem 7: 12/12/22 04:17 12/10/22 06:47 Labs: Abnormal Lab Results - Last 24 Hours (Table) 12/11/22 12/12/22 Range/Units 18:26 04:17 RBC 2.62 L (4.10-5.20) X 10*6/uL Hgb 7.2 L (12.0-15.0) g/dL Hct 23.5 L (37.2-46.3) % MCHC 30.6 L (32.0-37.0) g/dL Urine Ketones Trace H (Negative)
[2022-12-12] MEDS: SODIUM CHLORIDE 0.9% 1,000 ML IV SCH (15:43)
[2022-12-12] MEDS: PSYLLIUM HUSK 100% 6 GM PACKET PO SCH (16:08)
[2022-12-12] MEDS: QUEtiapine 100 MG TAB PO SCH (20:19)
[2022-12-13] MEDS: HYDROmorphone 1 MG/ML 1 ML SYRINGE IVP PRN ×2 (02:16→09:45)
[2022-12-13] MEDS: KETOROLAC 15 MG/ML 1 ML VIAL IVP PRN ×2 (05:14→12:34)
[2022-12-13 08:05] VITALS: BP 109/70; PULSE 81; RESP 18; TEMP 98.1
[2022-12-13] MEDS ORDERED: SODIUM FERRIC GLUCONAT-SUCROSE 125 MG in SODIUM CHLORIDE 0.9% 100 ML IVPB ONE (09:00)
[2022-12-13 09:39] LABS: African American GFR (CKD) 118.7 (60.0-200.0); Anion Gap 9.9 mmol/L (10.00-18.00); BUN/Creat Ratio 16.14 Ratio (12.00-20.00); Blood Urea Nitrogen 11.3 mg/dL (9.0-27.0); Calcium 9.1 mg/dL (8.7-10.3); Carbon Dioxide 25.1 mmol/L (20.0-27.5); Magnesium 2.3 mg/dL (1.5-2.4); Non-African American GFR(CKD) 102.5 (60.0-200.0); Potassium 4.2 mmol/L (3.5-5.5)
[2022-12-13] MEDS: polyethylene glycoL 3350 17 GM POWD.PACK PO SCH (09:44)
[2022-12-13] MEDS: PSYLLIUM HUSK 100% 6 GM PACKET PO SCH (09:44)
[2022-12-13] MEDS: SENNOSIDES-DOCUSATE SODIUM 1 EACH TAB PO SCH (09:44)
--- NOTE | 2022-12-13 09:49 | P.PN ---
Progress Note - Text Progress Note Date: 12/13/22 Patient still has complaints of perianal pain. She denies any significant rectal bleeding. On exam vital signs are stable. Abdomen soft. Status post hemorrhoidectomy for significant internal and external hemorrhoids. Patient to receive supportive care.
[2022-12-13 10:16] LABS: Basophils # (A) 0.05 X 10*3/uL (0.00-0.10); Basophils % (A) 0.6 %; Eosinophils # (A) 0.15 X 10*3/uL (0.04-0.35); Eosinophils % (A) 1.7 %; HCT 27.3 % (37.2-46.3); HGB 8.3 g/dL (12.0-15.0); Immature Grans, Automated 0.5 %; Lymphocytes # (A) 1.12 X 10*3/uL (0.90-5.00); Lymphocytes % (A) 12.7 %; MCH 27.8 pg (27.0-32.0); MCHC 30.4 g/dL (32.0-37.0); MCV 91.3 fL (80.0-97.0); Mean Platelet Volume 11.5 fL (9.5-12.2); Monocytes # (A) 0.55 X 10*3/uL (0.20-1.00); Monocytes % (A) 6.2 %; NRBC Per 100 WBC 0 /100 WBCS (0.0-0.0); Neutrophils # (A) 6.93 X 10*3/uL (1.80-7.70); Neutrophils % (A) 78.3 %; Platelet Count 324 X 10*3/uL (140-440); RBC 2.99 X 10*6/uL (4.10-5.20); RDW 13.6 % (11.5-14.5); WBC 8.84 X 10*3/uL (4.50-10.00)
--- NOTE | 2022-12-13 10:42 | P.DS ---
Providers Date of admission: 12/09/22 14:11 Expected date of discharge: 12/13/22 Attending physician: Samantha Diaz MD Consults: 12/08/22 14:04 Consult Physician Routine Consulting Provider: Rafael Acosta Consult Reason/Comments: internal hemorrhoid Do you want consulting provider notified?: Yes Primary care physician: Stiven Jennings Hospital Course: Assessment: Acute blood loss anemia on Chronic anemia Rectal bleeding, lower GI bleed Internal and external hemorrhoids status post internal and external hemorrhoidectomy on 12/09/22 History of anal fissure Urinary retention Hospital course: Patient is a 46-year-old female with a past medical history of anxiety and depression who was recently diagnosed with internal and external hemorrhoids, anal fissure and had colonic polyp removed on 11/28/22. Patient presented to the emergency department with a chief complaint of rectal bleeding with reports of bright red blood per rectum. Patient underwent full evaluation in the emergency department. CBC showing mild normocytic anemia with hemoglobin of 10.2. BMP unremarkable. Patient was found to have active bright red blood per rectum. Patient was admitted under our services with consultation to general surgery. Patient underwent internal and external hemorrhoidectomy 12/09/[address] Acosta. She was monitored for an additional 4 days following the procedure to ensure no further drops of hemoglobin requiring transfusion. She was also having pain control issues warranting doses of narcotics. By day of discharge, she was tolerating a diet, did have a bowel movement. Her hemoglobins remained stable, with discharge hemoglobin of 8.3. She should follow-up with her primary care physician as well as her general surgeon upon discharge. She was prescrib ed 3 days of [place], Toradol and ibuprofen with instructions not to use beyond 72 hours and not to use within 6 hours of one another. The instructions regarding NSAID use were discussed with her outpatient pharmacist as well. I spent 38 minutes coordinating this discharge on 12/13 Gen: awake, alert HEENT: normocephalic, atraumatic, good hearing acuity, moist mucous membranes Resp: good air exchange, breathing comfortably with no accessory muscle use CVS: good distal perfusion x 4, GI: soft, NTTP, ND : no SPT, no CVAT, kelley catheter not present MSK: no pitting edema, no clubbing Neuro: non-focal, moving all extremities Psych: cooperative, euthymic mood Patient Condition at Discharge: Good Plan - Discharge Summary New Discharge Prescriptions: New Psyllium Husk 100% [Metamucil Packet] 6 gm PO DAILY #30 packet Ibuprofen [Motrin] 400 mg PO Q6HR PRN #30 tab PRN Reason: Pain HYDROcodone/APAP 7.5-325MG [[place] 7.5-325] 1 each PO Q4H PRN #18 tab PRN Reason: Pain Sennosides-Docusate Sodium [Senokot-S] 1 each PO BID #60 tab Acetaminophen Tab [Tylenol] 650 mg PO Q4HR PRN tab PRN Reason: Fever And/ Or Pain Ketorolac [Toradol] 10 mg PO Q6HR #12 tab Continue Vsl #3 1 cap PO DAILY Hydrocortisone Suppository [Anusol-Hc] 25 mg RECTAL DAILY Dextroamphetamine/Amphetamine [Adderall Xr 15 mg Capsule] 15 mg PO DAILY Vilazodone HCl [Viibryd] 20 mg PO DAILY QUEtiapine [SEROquel] 100 mg PO HS Dextroamphetamine/Amphetamine [Adderall] 10 mg PO DAILY@1200 Discharge Medication List Dextroamphetamine/Amphetamine [Adderall Xr 15 mg Capsule] 15 mg PO DAILY 11/27/22 [History] Dextroamphetamine/Amphetamine [Adderall] 10 mg PO DAILY@1200 11/27/22 [History] QUEtiapine [SEROquel] 100 mg PO HS 11/27/22 [History] Vilazodone HCl [Viibryd] 20 mg PO DAILY 11/27/22 [History] Vsl #3 1 cap PO DAILY 11/27/22 [History] Hydrocortisone Suppository [Anusol-Hc] 25 mg RECTAL DAILY 12/08/22 [History] Acetaminophen Tab [Tylenol] 650 mg PO Q4HR PRN tab 12/13/22 [Rx] HYDROcodone/APAP 7.5-325MG [[place] 7.5-325] 1 each PO Q4H PRN #18 tab 12/13/22 [Rx] Ibuprofen [Motrin] 400 mg PO Q6HR PRN #30 tab 12/13/22 [Rx] Ketorolac [Toradol] 10 mg PO Q6HR #12 tab 12/13/22 [Rx] Psyllium Husk 100% [Metamucil Packet] 6 gm PO DAILY #30 packet 12/13/22 [Rx] Sennosides-Docusate Sodium [Senokot-S] 1 each PO BID #60 tab 12/13/22 [Rx] Follow up Appointment(s)/Referral(s): Stiven Jennings MD [Primary Care Provider] - 1-2 days Rafael Acosta MD [STAFF PHYSICIAN] - 1 Week Patient Instructions/Handouts: *Surgery [facility] - Hemorrhoidectomy Discharge Instructions, *[facility] - (Anesthesia) Discharge Instructions Outpatient Surgery Activity/Diet/Wound Care/Special Instructions: Do NOT use toradol and motrin or any other NSAID (ibuprofen, naproxen) within 6 hours of each other. Max use for 72 hours. Discharge Disposition: HOME SELF-CARE
[2022-12-13] MEDS ORDERED: BENZOCAINE/MENTHOL SPRAY 1 GM/SPRAY AEROSOL TOPICAL PRN (12:47)
== END 2022-12-13 14:05 | disposition home or self-care (01) ==
LOC: EC 11:20 → 6NMEDSUR 14:13 → OBSVTOIN 12-09 14:11 → INTOOBSV 12-09 14:11 → UNDODISIN 12-13 14:05
PROVIDERS: ADMIT Internal Medicine; ATTEND Internal Medicine
DX: K64.8 Other hemorrhoids (principal); K64.4 Residual hemorrhoidal skin tags; D62 Acute posthemorrhagic anemia; F32.A Depression, unspecified; F41.9 Anxiety disorder, unspecified; D64.9 Anemia, unspecified; R33.9 Retention of urine, unspecified; Z79.899 Other long term (current) drug therapy; Z88.5 Allergy status to narcotic agent; Z88.2 Allergy status to sulfonamides; Z88.1 Allergy status to other antibiotic agents; Z90.710 Acquired absence of both cervix and uterus; Z98.84 Bariatric surgery status
CPT/HCPCS: 96376 ×5; 96365 ×2; 96366; 96372; 96375 ×2; 96361; 99285; 36415; 86900; 86901; 88304; 80048 ×4; 83735; 85025 ×2; 85027 ×4; 86850; 81003; 46255; G0378 ×6; J2250; J0330; J2060 ×2; J1200; J3420; J1644; J1100; J2405 ×2; J0690; J3010; J2916 ×3; J1170 ×5; J1885 ×3; J2704; J2001; 96374

== ENCOUNTER → 2022-12-15 | Outpatient (CLI) | payer BC ==
--- NOTE | 2022-12-15 16:45 | US ---
EXAMINATION TYPE: US venous doppler duplex UE RT DATE OF EXAM: 12/15/2022 COMPARISON: NONE CLINICAL INDICATION: Female, 46 years old with history of I82.619 ACUTE EMBOLISM AND THROMBOSIS; Pt s tates pain and lump right medial are at area of prior IV site SIDE PERFORMED: Right Right Arm: Negative for DVT, positive for SVT within right basilic vein in area of pt's pain and lump at prior IV site Results called to Justina GABRIEL at 's office at time exam Grayscale, color doppler, spectral doppler imaging performed of the deep veins of the right upper ext remity. There is normal flow, compressibility and vascular waveforms. IMPRESSION: Superficial thrombophlebitis is present as detailed above.
--- NOTE | 2022-12-16 07:07 | US ---
EXAMINATION TYPE: US bladder DATE OF EXAM: 12/15/2022 COMPARISON: NONE CLINICAL INDICATION: Female, 46 years old with history of post void; Pt states difficulty emptying bl adder post surgery TECHNIQUE: Multiple sonographic images of the bladder are obtained. FINDINGS: EXAM MEASUREMENTS: Bladder Volume: 55 mL PORTABLE TRACK LINE MARKER NOTES: Per Noemy GABRIEL, pt was not given prep to fill bladder- tech to image bladd er without filling Color Doppler performed to assess ureteral jets. Bilateral Jets seen: No Normal Post Void Residual (less than 50ml): Pt unable to void bladder to obtain post void image s Results called to Mery at dr's office at time of exam IMPRESSION: Unremarkable urinary bladder. Patient unable to void.
== END | disposition home or self-care (01) ==
LOC: LABWHC1 15:40
PROVIDERS: ATTEND Physician Assistant Medical
DX: I82.611 Acute embolism and thrombosis of superficial veins of right upper extremity (principal); I80.01 Phlebitis and thrombophlebitis of superficial vessels of right lower extremity
CPT/HCPCS: 76857

== ENCOUNTER → 2022-12-15 | Outpatient (CLI) | payer BC | END | disposition home or self-care (01) | LOC: RADUSWWP 16:20 | PROVIDERS: ATTEND Family Medicine | DX: Z53.9 Procedure and treatment not carried out, unspecified reason (principal) ==

== ENCOUNTER → 2023-02-27 | Outpatient (CLI) | payer OTHER ==
[2023-02-27 16:26] LABS: HGB 11.3 d/dL (12.0-15.0); RBC 4.41 X 10*6/uL (4.10-5.20); WBC 3.95 X 10*3/uL (4.50-10.00)
[2023-02-27 16:27] LABS: Basophils # (A) 0.04 X 10*3/uL (0.00-0.10); Eosinophils # (A) 0.17 X 10*3/uL (0.04-0.35); Eosinophils % (A) 4.3 %; HCT 38.8 % (37.2-46.3); Immature Grans, Automated 0 %; Lymphocytes # (A) 1.04 X 10*3/uL (0.90-5.00); Lymphocytes % (A) 26.3 %; MCH 25.6 pg (27.0-32.0); MCHC 29.1 d/dL (32.0-37.0); Mean Platelet Volume 11.5 FL (9.5-12.2); Monocytes # (A) 0.23 X 10*3/uL (0.20-1.00); Monocytes % (A) 5.8 %; NRBC Per 100 WBC 0 X 10*3/uL (0.00-0.01); Neutrophils # (A) 2.47 X 10*3/uL (1.80-7.70); Neutrophils % (A) 62.6 %; Platelet Count 284 X 10*3/uL (140-440); RDW 15.1 % (11.5-14.5)
[2023-02-27 16:46] LABS: % Iron Saturation 5.66 (12.00-45.00); ALT 22 U/L (8-44); AST 20 U/L (13-35); Albumin 4.5 d/dL (3.8-4.9); Albumin/Globulin Ratio 1.96 Ratio (1.60-3.17); Alkaline Phosphatase 56 U/L (41-126); BUN/Creat Ratio 17.14 Ratio (12.00-20.00); Calcium 9.6 mg/dL (8.7-10.3); Carbon Dioxide 25.7 mmol/L (21.6-31.8); Chloride 105 mmol/L (96-109); Chol/HDL Ratio 2.47 Ratio; Ferritin 7.1 ng/mL (10.0-291.0); Globulin 2.3 d/dL (1.6-3.3); Glucose 91 mg/dL (70-110); Iron 29 UG/DL (50-170); LDL Cholesterol,Calculated 119.8 mg/dL (0.0-131.0); Potassium 4.2 mmol/L (3.5-5.5); Sodium 141 mmol/L (135-145); Total Bilirubin 0.2 mg/dL (0.3-1.2); Total Iron Binding Capacity 512 UG/DL (228-460); Total Protein 6.8 d/dL (6.2-8.2)
== END | disposition home or self-care (01) ==
LOC: LABWHC1 07:42
PROVIDERS: ATTEND Family Medicine
DX: Z13.220 Encounter for screening for lipoid disorders (principal); Z13.1 Encounter for screening for diabetes mellitus; D50.9 Iron deficiency anemia, unspecified; R53.83 Other fatigue
CPT/HCPCS: 36415; 80053; 80061; 82607; 82728; 82746; 83036; 83540; 83550; 84443; 85025

== ENCOUNTER → 2023-03-05 | Outpatient (CLI) | payer OTHER ==
--- NOTE | 2023-03-06 16:24 | MM ---
Reason for Exam: Screening (asymptomatic). Last screening mammogram was performed 12 month(s) ago. Patient History: Menarche at age 10. First Full-Term at age 17. Hysterectomy at age 34. Paternal aunt had breast cancer, age 50. Risk Values: Mame 5 year model risk: 0.7%. NCI Lifetime model risk: 6.6%. Prior Study Comparison: 10/24/2019 Bilateral MG 3D screening mammo w/cad, Unknown. 11/22/2020 Bilateral MG 3D screening mammo w/cad, Unknown. 02/25/2022 Bilateral MG 3D screening mammo w/cad, [facility]. Tissue Density: The breast tissue is extremely dense which could obscure a lesion on mammography. Findings: Analyzed By CAD. Pattern appears symmetrical. No suspicious groups of microcalcifications, spiculated or lobular masses, architectural distortion or other secondary signs of malignancy are mammographically apparent. Overall Assessment: Benign, BI-RAD 2 Management: Screening Mammogram of both breasts in 1 year. A negative mammogram report should not preclude additional follow up of suspicious palpable abnormalities. Patient should continue monthly self breast exam. A clinical breast exam by your physician is recommended on an annual basis and results should be correlated with mammographic findings. Electronically signed and approved by: Rony Gilmore D.O. Radiologis
== END | disposition home or self-care (01) ==
LOC: RADMAMWWP 09:41
PROVIDERS: ATTEND Family Medicine
DX: Z12.31 Encounter for screening mammogram for malignant neoplasm of breast (principal); Z80.3 Family history of malignant neoplasm of breast
CPT/HCPCS: 77063; 77067

== ENCOUNTER → 2023-04-02 | Outpatient (CLI) | payer OTHER ==
[2023-04-02 17:09] LABS: Basophils # (A) 0.05 X 10*3/uL (0.00-0.10); Basophils % (A) 0.8 %; Eosinophils # (A) 0.06 X 10*3/uL (0.04-0.35); Eosinophils % (A) 0.9 %; HCT 39.5 % (37.2-46.3); HGB 12.1 d/dL (12.0-15.0); Lymphocytes # (A) 0.91 X 10*3/uL (0.90-5.00); Lymphocytes % (A) 13.7 %; MCH 26.2 pg (27.0-32.0); MCHC 30.6 d/dL (32.0-37.0); MCV 85.7 FL (80.0-97.0); Mean Platelet Volume 11.5 FL (9.5-12.2); NRBC Per 100 WBC 0 X 10*3/uL (0.00-0.01); Neutrophils % (A) 78.3 %; Platelet Count 305 X 10*3/uL (140-440); RBC 4.61 X 10*6/uL (4.10-5.20); RDW 17.1 % (11.5-14.5); WBC 6.64 X 10*3/uL (4.50-10.00)
[2023-04-02 17:27] LABS: % Iron Saturation 7.41 (12.00-45.00); Ferritin 7.7 ng/mL (10.0-291.0); Testosterone 11.1 ng/dL (9.01-47.94)
[2023-04-02 19:06] LABS: Follicle Stimulating Hormone 3.9 mIU/mL; Luteinizing Hormone 3.5 mIU/mL
[2023-04-03 16:31] LABS: Estrogens Total 348 pg/mL
== END | disposition home or self-care (01) ==
LOC: LABWHC1 07:33
PROVIDERS: ATTEND Family Medicine
DX: D50.9 Iron deficiency anemia, unspecified (principal); Z78.0 Asymptomatic menopausal state
CPT/HCPCS: 36415; 82525; 82672; 82728; 83001; 83002; 83540; 83550; 84403; 85025

== ENCOUNTER → 2023-04-16 | Outpatient (CLI) | payer OTHER ==
[2023-04-16 19:59] LABS: % Iron Saturation 9.52 (12.00-45.00); Ferritin 12.2 ng/mL (10.0-291.0)
[2023-04-16 23:44] LABS: Basophils # (A) 0.05 X 10*3/uL (0.00-0.10); Basophils % (A) 0.8 %; Eosinophils # (A) 0.09 X 10*3/uL (0.04-0.35); Eosinophils % (A) 1.5 %; Lymphocytes # (A) 1.27 X 10*3/uL (0.90-5.00); Lymphocytes % (A) 20.8 %; MCH 26.8 pg (27.0-32.0); MCHC 30.8 d/dL (32.0-37.0); MCV 87.1 FL (80.0-97.0); Mean Platelet Volume 10.9 FL (9.5-12.2); Monocytes % (A) 4.9 %; NRBC Per 100 WBC 0 X 10*3/uL (0.00-0.01); Neutrophils % (A) 71.8 %; Platelet Count 291 X 10*3/uL (140-440); RBC 4.48 X 10*6/uL (4.10-5.20); RDW 17.6 % (11.5-14.5); WBC 6.12 X 10*3/uL (4.50-10.00)
== END | disposition home or self-care (01) ==
LOC: LABWHC1 12:32
PROVIDERS: ATTEND Physician Assistant Medical
DX: E61.1 Iron deficiency (principal)
CPT/HCPCS: 36415; 82728; 83540; 83550; 85025

== ENCOUNTER → 2023-07-08 | Outpatient (CLI) | payer OTHER ==
[2023-07-08 16:46] LABS: % Iron Saturation 7.37 (12.00-45.00); Ferritin 8.5 ng/mL (10.0-291.0)
== END | disposition home or self-care (01) ==
LOC: LABWHC1 09:26
PROVIDERS: ATTEND Family Medicine
DX: D64.9 Anemia, unspecified (principal)
CPT/HCPCS: 36415; 82607; 82728; 83540; 83550

== ENCOUNTER → 2023-10-20 | Outpatient (CLI) | payer OTHER ==
[2023-10-20 15:31] LABS: Basophils # (A) 0.05 X 10*3/uL (0.00-0.10); Basophils % (A) 0.9 %; Eosinophils % (A) 1.7 %; HCT 42.5 % (37.2-46.3); HGB 13.1 g/dL (12.0-15.0); Lymphocytes # (A) 1.21 X 10*3/uL (0.90-5.00); Lymphocytes % (A) 20.9 %; MCH 28.1 pg (27.0-32.0); MCHC 30.8 g/dL (32.0-37.0); Mean Platelet Volume 11.8 FL (9.5-12.2); Monocytes # (A) 0.43 X 10*3/uL (0.20-1.00); Monocytes % (A) 7.4 %; NRBC Per 100 WBC 0 X 10*3/uL (0.00-0.01); Neutrophils % (A) 68.9 %; Platelet Count 264 X 10*3/uL (140-440); RBC 4.67 X 10*6/uL (4.10-5.20); RDW 14.9 % (11.5-14.5)
[2023-10-20 16:50] LABS: % Iron Saturation 24.6 (12.00-45.00); Ferritin 11.8 ng/mL (10.0-291.0)
[2023-10-20 17:05] LABS: Follicle Stimulating Hormone 4.8 mIU/mL; Luteinizing Hormone 2.2 mIU/mL
== END | disposition home or self-care (01) ==
LOC: LABWHC1 09:16
PROVIDERS: ATTEND Physician Assistant Medical
DX: D50.9 Iron deficiency anemia, unspecified (principal); R73.03 Prediabetes; Z78.0 Asymptomatic menopausal state
CPT/HCPCS: 36415; 82728; 83001; 83002; 83036; 83540; 83550; 85025

== ENCOUNTER → 2023-10-21 | Outpatient (CLI) | payer OTHER ==
--- NOTE | 2023-10-21 19:53 | US ---
EXAMINATION TYPE: US groin LT DATE OF EXAM: 10/21/2023 COMPARISON: CLINICAL INDICATION: Female, 47 years old with history of R59.0 LOCALIZED ENLARGED LYMPH NODES; Recen t left groin palpable that is uncomfortable. TECHNIQUE: Multiple sonographic images taken of left groin palpable FINDINGS: Area of concern scanned at left groin. Lymph node visualized with short axis measurement = 0.7 cm and cortical thickness= 3.2 mm. IMPRESSION: Somewhat prominent lymph node at the palpable abnormality left groin.
--- NOTE | 2023-10-21 20:01 | US ---
EXAMINATION TYPE: US groin RT DATE OF EXAM: 10/21/2023 COMPARISON: CLINICAL INDICATION: Female, 47 years old with history of R59.0 LOCALIZED ENLARGED LYMPH NODES; Right groin palpable x 9 months that patient states has increased in size. TECHNIQUE: Multiple sonographic images taken of patients area of concern. FINDINGS: Area of right groin palpable scanned with multiple lymph nodes seen. -Largest short axis measurement = 0.8 cm and cortical thickness= 3.9 mm Lymphoma should be considered within the differential. Infectious etiologies are within the different ial. IMPRESSION: 1. Prominent right inguinal lymph node with thickened cortex. Additional lymphadenopathy is present. Consider additional workup.
== END | disposition home or self-care (01) ==
LOC: RADUSWWP 14:55
PROVIDERS: ATTEND Family Medicine
DX: R59.0 Localized enlarged lymph nodes (principal)

== ENCOUNTER → 2023-10-22 | Outpatient (CLI) | payer OTHER | END | disposition home or self-care (01) | LOC: LABWHC1 12:24 | PROVIDERS: ATTEND Family Medicine | DX: R71.8 Other abnormality of red blood cells (principal) ==

== ENCOUNTER → 2023-12-04 | Outpatient (CLI) | payer OTHER ==
[2023-12-04 16:44] LABS: % Iron Saturation 20.28 (12.00-45.00)
[2023-12-04 16:45] LABS: Ferritin 16.4 ng/mL (10.0-291.0)
== END | disposition home or self-care (01) ==
LOC: LABWHC1 11:03
PROVIDERS: ATTEND Family Medicine
DX: R71.8 Other abnormality of red blood cells (principal)
CPT/HCPCS: 36415; 82728; 83540; 83550

== ENCOUNTER → 2024-01-07 | Outpatient (CLI) | payer OTHER ==
[2024-01-07 18:32] LABS: % Iron Saturation 12.18 (12.00-45.00); Ferritin 9.4 ng/mL (10.0-291.0)
== END | disposition home or self-care (01) ==
LOC: LABWHC1 11:24
PROVIDERS: ATTEND Family Medicine
DX: E61.1 Iron deficiency (principal)
CPT/HCPCS: 36415; 82728; 83540; 83550

== ENCOUNTER → 2024-01-22 | Outpatient (CLI) | payer OTHER ==
[2024-01-22 16:08] LABS: % Iron Saturation 20.79 (12.00-45.00); Ferritin 16.9 ng/mL (10.0-291.0)
== END | disposition home or self-care (01) ==
LOC: LABWHC1 11:28
PROVIDERS: ATTEND Family Medicine
DX: E61.1 Iron deficiency (principal)
CPT/HCPCS: 36415; 82728; 83540; 83550

== ENCOUNTER → 2024-01-26 | Outpatient (CLI) | payer OTHER ==
[2024-01-26 21:25] LABS: Thyroid Peroxidase Antibodies <9.0 U/mL (0.0-33.0)
[2024-01-26 21:27] LABS: ALT 23 U/L (8-44); AST 22 U/L (13-35); Albumin 4.7 g/dL (3.8-4.9); Albumin/Globulin Ratio 1.96 Ratio (1.60-3.17); Alkaline Phosphatase 72 U/L (41-126); BUN/Creat Ratio 22.12 Ratio (12.00-20.00); Blood Urea Nitrogen 17.7 mg/dL (9.0-27.0); Calcium 9.7 mg/dL (8.7-10.3); Carbon Dioxide 25.2 mmol/L (21.6-31.8); Chloride 102 mmol/L (96-109); Globulin 2.4 g/dL (1.6-3.3); Glucose 101 mg/dL (70-110); Potassium 3.9 mmol/L (3.5-5.5); Sodium 139 mmol/L (135-145); T4, Free (Free Thyroxine) 1.04 ng/dL (0.80-1.80); Total Bilirubin 0.3 mg/dL (0.3-1.2); Total Protein 7.1 g/dL (6.2-8.2)
[2024-01-26 21:32] LABS: Follicle Stimulating Hormone 17.9 mIU/mL
== END | disposition home or self-care (01) ==
LOC: LABWHC1 14:29
PROVIDERS: ATTEND Obstetrics & Gynecology
DX: F41.8 Other specified anxiety disorders (principal); N95.9 Unspecified menopausal and perimenopausal disorder; R53.83 Other fatigue
CPT/HCPCS: 36415; 80053; 82306; 82670; 83001; 84144; 84402; 84403; 84439; 84443; 84481; 86376

== ENCOUNTER → 2024-02-26 | Outpatient (CLI) | payer OTHER ==
--- NOTE | 2024-02-26 13:20 | MM ---
Reason for Exam: Clinical finding. Last screening mammogram was performed 12 month(s) ago. Indicated Problems: Palpable abnormality of the right side (size 10) for 1 Day(s). Patient History: Menarche at age 10. First Full-Term at age 17. Hysterectomy at age 34. Paternal aunt had breast cancer, age 50. Risk Values: Mame 5 year model risk: 0.7%. NCI Lifetime model risk: 6.5%. Prior Study Comparison: 10/24/2019 Bilateral MG 3D screening mammo w/cad, Unknown. 11/22/2020 Bilateral MG 3D screening mammo w/cad, Unknown. 02/25/2022 Bilateral MG 3D screening mammo w/cad, [facility]. 03/05/2023 Bilateral MG 3D screening mammo w/cad, [facility]. Tissue Density: The breasts are extremely dense, which lowers the sensitivity of mammography. Findings: Analyzed By CAD. There is a 1.1 cm round mass underlying the patient's low axillary tail palpable site on the right. Otherwise, no significant change. Overall Assessment: Incomplete: need additional imaging evaluation, BI-RAD 0 Management: Diagnostic Breast Ultrasound of the right breast. Electronically signed and approved by: Martha Major M.D. Radiologist
--- NOTE | 2024-02-26 13:50 | USB ---
Reason for Exam: Clinical finding. Patient History: Menarche at age 10. First Full-Term at age 17. Hysterectomy at age 34. Paternal aunt had breast cancer, age 50. Risk Values: Mame 5 year model risk: 0.7%. NCI Lifetime model risk: 6.5%. Technique: Method: Whole Breast Handheld. Prior Study Comparison: 11/22/2020 Bilateral MG 3D screening mammo w/cad, Unknown. 02/25/2022 Bilateral MG 3D screening mammo w/cad, [facility]. 03/05/2023 Bilateral MG 3D screening mammo w/cad, [facility]. Findings: The whole breast of the right breast, the axilla of the right breast and the retroareolar of the right breast were scanned. A complete US of all four quadrants of the breast and retro-areolar region were reviewed. There is a 7 x 5 x 1 cm irregular solid nodule 9:00 position for which core biopsy recommended. Additionally there are lymph nodes in the axilla the largest measuring 1 cm.. Also recommend biopsy of the palpable lymph node. Overall Assessment: Suspicious, BI-RAD 4 Management: Ultrasound Core Biopsy of the right breast. A clinical breast exam by your physician is recommended on an annual basis and results should be correlated with mammographic findings. This exam should not preclude additional follow-up of suspicious palpable abnormalities. Results were given to the patient verbally at the time of exam. Electronically signed and approved by: Vaibhav Mancera M.D. Radiologis
== END | disposition home or self-care (01) ==
LOC: RADMAMWWP 12:28
PROVIDERS: ATTEND Family Medicine
DX: N63.10 Unspecified lump in the right breast, unspecified quadrant (principal); Z80.3 Family history of malignant neoplasm of breast
CPT/HCPCS: 77062; 77066

== ENCOUNTER → 2024-03-14 | Day surgery (SDC) | payer OTHER ==
--- NOTE | 2024-04-20 09:25 | MM ---
Reason for Exam: Post Procedure Mammogram. Last screening mammogram was performed less than 1 month ago. Patient History: Menarche at age 10. First Full-Term at age 17. Hysterectomy at age 34. Paternal aunt had breast cancer, age 50. Risk Values: Mame 5 year model risk: 0.7%. NCI Lifetime model risk: 6.5%. Prior Study Comparison: 02/25/2022 Bilateral MG 3D screening mammo w/cad, [facility]. 03/05/2023 Bilateral MG 3D screening mammo w/cad, [facility]. 02/26/2024 Bilateral MG 3D diag mammo w/cad [facility], [facility]. Tissue Density: Right: The breasts are extremely dense, which lowers the sensitivity of mammography. Pathology Description: Location: axilla. Marker Left Behind. Needle Type: Celero Cores: 3 Gauge: 12 Pathology Description: Location: 9 o'clock. Marker Left Behind. Needle Type: Celero Cores: 4 Gauge: 12 The procedure of ultrasound guided core biopsy was explained to the patient. Benefits, alternatives, and risks were discussed. An informed consent was then obtained. The patient was placed in supine positioning for imaging and for the procedure. The overlying skin was prepped and draped in usual sterile fashion. Lidocaine buffered with bicarbonate was used as anesthetic into the skin and subcutaneous tissue up to area of concern in the right breast 9:00 and right axilla. Under ultrasound guidance, a 12-gauge vacuum assisted biopsy gun device was used to obtain 3 core samples at each site. Following this, a biopsy clip was deployed in each lesion. The patient tolerated the procedure well without any immediate complication. The patient was kept in the radiology department for short stay after the procedure and then discharged home in stable condition. Postprocedure mammogram: The patient was transferred to mammography for physician ordered post procedure mammogram for clip placement verification. Impression: Successful, uncomplicated ultrasound guided core biopsy of area of concern in the right 9:00 breast and right axilla, full pathology results to follow. Pathology Results: Result: Malignant, Invasive ductal carcinoma. Pathology and radiology were reviewed. Findings are concordant. A. 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 See Surgical Pathology Cancer Case Summary and comment. B. LYMPH NODE, RIGHT AXILLA, ULTRASOUND GUIDED CORE BIOPSY: Macrometastatic high grade mammary ductal carcinoma. See Surgical Pathology Cancer Case Summary and comment. Overall Assessment: Malignant Assessment: MG diagnostic mammo RT wo CAD - Right: Known biopsy proven malignancy, BI-RAD 6. Management: Surgical Consultation of the right breast. Electronically signed and approved by: Angel Fishman M.D. Radiologis
== END ==
LOC: RADUSWWP 12:39
PROVIDERS: ATTEND Family Medicine
DX: D05.11 Intraductal carcinoma in situ of right breast (principal); R92.8 Other abnormal and inconclusive findings on diagnostic imaging of breast; Z17.1 Estrogen receptor negative status [ER-]
CPT/HCPCS: 88305; 88342; 88341; 77065; 19083; 19084; A4648

== ENCOUNTER → 2024-05-17 | Outpatient (CLI) | payer OTHER ==
[2024-05-17 13:48] LABS: Anisocytosis Slight; Basophils % (A) 0 %; Eosinophils % (A) 0 %; HGB 11.2 gm/dL (11.4-16.0); Lymphocytes # (A) 1.4 k/uL (1.0-4.8); Lymphocytes % (A) 7 %; MCH 29.1 pg (25.0-35.0); MCV 88.2 fL (80.0-100.0); Mean Platelet Volume 7.9; Monocytes # (A) 0.4 k/uL (0-1.0); Monocytes % (A) 2 %; Neutrophils # (A) 16.3 k/uL (1.3-7.7); Neutrophils % (A) 89 %; Platelet Count 141 k/uL (150-450); RBC 3.85 m/uL (3.80-5.40); RDW 16.6 % (11.5-15.5); WBC 18.3 k/uL (3.8-10.6)
[2024-05-17 14:05] LABS: Anion Gap 7 mmol/L; Blood Urea Nitrogen 10 mg/dL (7-17); Carbon Dioxide 29 mmol/L (22-30); Chloride 104 mmol/L (98-107); Glucose 100 mg/dL (74-99); Potassium 2.9 mmol/L (3.5-5.1); Sodium 140 mmol/L (137-145)
[2024-05-17 14:06] LABS: ALT 18 U/L (4-34); AST 26 U/L (14-36); African American GFR (CKD) >90 (>60 ml/min/1.73 sqM); Albumin 3.9 g/dL (3.5-5.0); Albumin/Globulin Ratio 1.6; Alkaline Phosphatase 96 U/L (38-126); Calcium 8.8 mg/dL (8.4-10.2); Globulin 2.4 g/dL; Non-African American GFR(CKD) 81 (>60 ml/min/1.73 sqM); Total Bilirubin 0.3 mg/dL (0.2-1.3); Total Protein 6.3 g/dL (6.3-8.2)
== END | disposition home or self-care (01) ==
LOC: LABWHC1 12:59
PROVIDERS: ATTEND Nurse Practitioner
DX: C50.919 Malignant neoplasm of unspecified site of unspecified female breast (principal)
CPT/HCPCS: 36415; 80053; 85025